=== PATIENT | female | born 1960 | race Caucasian/White ===

== ENCOUNTER 2016-10-10 15:32 | Emergency (ER) | payer OTHER ==
[~2016-10-10] VITALS: Ht 154.9 cm; Wt 47.2 kg
[2016-10-10] MEDS ORDERED: NOVAPLUS V0.09 MG/Ac INH (15:53)
[2016-10-10 16:53] LABS: BASO % 0.4 % (0.0-1.0); EOS # 0.2 10*3/uL (0.0-0.4); EOS % 2.1 % (1.0-4.0); HEMATOCRIT 44.4 % (37.0-47.0); HEMOGLOBIN 14.6 g/dl (12.0-16.0); LYMPH # 2.5 10*3/uL (1.3-4.4); LYMPH % 35.8 % (27.0-41.0); MEAN CELL VOLUME 98.4 fl (81.0-99.0); MEAN CORPUSCULAR HGB 32.4 pg (27.0-31.0); MEAN CORPUSCULAR HGB CONC 32.9 g/dl (33.0-37.0); MEAN PLATELET VOLUME 10.1 fl (9.6-12.3); MONO # 0.7 10*3/uL (0.1-1.0); MONO % 10.6 % (3.0-9.0); NEUT # 3.6 10*3/uL (2.3-7.9); PLATELET COUNT AUTOMATED 209 10*3/uL (130-400); RED BLOOD COUNT 4.51 10*6/uL (4.10-5.10); RED CELL DISTRI WIDTH 14.2 % (0-14.5)
[2016-10-10 17:02] LABS: INTERNATIONAL NORM RATIO 0.9 (2.0-3.5)
[2016-10-10 17:09] LABS: ALBUMIN 3.6 gm/dl (3.1-4.5); ALKALINE PHOSPHATASE 116 U/L (45-117); BILIRUBIN, TOTAL 0.3 mg/dl (0.2-1.0); BUN 5 mg/dl (7-24); C-REACTIVE PROTEIN 0.84 MG/DL (0-0.3); CARBON DIOXIDE 29 mmol/L (21-32); CHLORIDE 104 mmol/L (98-107); CPK 41 U/L (26-192); EST GLOM FILT AFRICAN AMERICAN > 60 ml/min; GLUCOSE 77 mg/dL (65-99); POTASSIUM 4.6 mmol/L (3.5-5.1); SGOT/AST 22 IU/L (3-35); SGPT/ALT 15 U/L (12-78); SODIUM 142 mmol/L (136-145); TOTAL PROTEIN 7.3 gm/dL (6.4-8.2)
[2016-10-10 17:10] LABS: TROPONIN I < 0.015 ng/ml (<0.045)
[2016-10-10] MEDS ORDERED: PREDNISONE10 MG PO (17:42)
[2016-10-10] MEDS ORDERED: LEVAQUIN750 M1 PO (17:42)
== END 2016-10-10 18:06 | disposition home or self-care (01) ==
LOC: ED 15:32
PROVIDERS: Emergency Medicine
DX: J44.1 Chronic obstructive pulmonary disease with (acute) exacerbation (principal); F17.200 Nicotine dependence, unspecified, uncomplicated; Z88.0 Allergy status to penicillin; Z88.6 Allergy status to analgesic agent; Z91.040 Latex allergy status

== ENCOUNTER 2016-10-11 22:25 | Inpatient (IN) | payer OTHER ==
[~2016-10-11] VITALS: Ht 152.4 cm; Wt 60.5 kg
[~2016-10-11 22:25] MED LIST: LEVAQUIN750 M1 PO; NOVAPLUS V0.09 MG/Ac INH; PREDNISONE10 MG PO
[2016-10-11 22:26] VITALS: BP 159/98
[2016-10-11 22:45] LABS: HEMATOCRIT 40.7 % (37.0-47.0); HEMOGLOBIN 13.6 g/dl (12.0-16.0); MEAN CELL VOLUME 98.5 fl (81.0-99.0); MEAN CORPUSCULAR HGB 32.9 pg (27.0-31.0); MEAN CORPUSCULAR HGB CONC 33.4 g/dl (33.0-37.0); PLATELET COUNT AUTOMATED 210 10*3/uL (130-400); RED BLOOD COUNT 4.13 10*6/uL (4.10-5.10); RED CELL DISTRI WIDTH 14.4 % (0-14.5); WHITE BLOOD COUNT 15.6 10*3/uL (4.8-10.8)
[2016-10-11 22:55] LABS: PROTHROMBIN TIME 10.5 SECONDS (9.0-12.4)
[2016-10-11 23:00] VITALS: BP 105/69
[2016-10-11 23:06] LABS: ALBUMIN 3.4 gm/dl (3.1-4.5); ALKALINE PHOSPHATASE 99 U/L (45-117); BILIRUBIN, TOTAL 0.3 mg/dl (0.2-1.0); BUN 7 mg/dl (7-24); CARBON DIOXIDE 22 mmol/L (21-32); CHLORIDE 101 mmol/L (98-107); EST GLOM FILT AFRICAN AMERICAN > 60 ml/min; GLUCOSE 135 mg/dL (65-99); MAGNESIUM 1.7 mg/dL (1.5-2.1); POTASSIUM 3.9 mmol/L (3.5-5.1); SGOT/AST 21 IU/L (3-35); SGPT/ALT 15 U/L (12-78); SODIUM 135 mmol/L (136-145); TOTAL PROTEIN 7.1 gm/dL (6.4-8.2)
[2016-10-11 23:07] LABS: TROPONIN I < 0.015 ng/ml (<0.045)
[2016-10-11 23:10] LABS: BASOPHIL # 0.3 10*3/uL (0-0.1); BASOPHILS 2 % (0-1); LYMPHOCYTE # 0.8 10*3/uL (1.3-4.4); NEUTROPHIL # 14.5 10*3/uL (2.3-7.9); NEUTROPHILS 93 % (47-73); PLATELET SUFFICIENCY NORMAL (NORMAL); TOTAL CELLS COUNTED 100 #CELLS
[2016-10-11 23:27] VITALS: BP 105/67
[2016-10-11 23:33] LABS: ABG BASE EXCESS -3.8 mmol/L (-2.0-2.0); ABG CO2 CONTENT 22.1 mmol/L (23-27); ABG HCO3 20.9 mmol/l (22-26); ABG TEMPERATURE 98.8 F (98.0-99.0); ARTERIAL BLOOD GAS PH 7.35 (7.35-7.45); ARTERIAL BLOOD GAS PO2 90.9 mmHg (80-90)
[2016-10-11 23:55] VITALS: BP 97/62
[2016-10-12 00:15] VITALS: BP 115/71
[2016-10-12 01:00] LABS: LA>2 REFLEX 2 HR DRAW NOW
[2016-10-12] MEDS ORDERED: PRILOSEC20 M1 PO (01:01)
[2016-10-12 01:05] LABS: LA>2 RFLX FOLLOW UP AT 2 HRS 2.6 mmol/L (0.4-2.0)
[2016-10-12 03:02] LABS: LA>2 REFLEX 4 HR DRAW NOW
[2016-10-12 04:00] VITALS: BP 112/71
[2016-10-12 04:44] LABS: HEMATOCRIT 38.8 % (37.0-47.0); HEMOGLOBIN 12.6 g/dl (12.0-16.0); MEAN CELL VOLUME 99.7 fl (81.0-99.0); MEAN CORPUSCULAR HGB 32.4 pg (27.0-31.0); MEAN CORPUSCULAR HGB CONC 32.5 g/dl (33.0-37.0); PLATELET COUNT AUTOMATED 190 10*3/uL (130-400); RED BLOOD COUNT 3.89 10*6/uL (4.10-5.10); RED CELL DISTRI WIDTH 14.4 % (0-14.5)
[2016-10-12 04:54] LABS: PROTHROMBIN TIME 10.7 SECONDS (9.0-12.4)
[2016-10-12 05:00] LABS: ALBUMIN 3.1 gm/dl (3.1-4.5); ALKALINE PHOSPHATASE 82 U/L (45-117); BILIRUBIN, TOTAL 0.2 mg/dl (0.2-1.0); BUN 4 mg/dl (7-24); CARBON DIOXIDE 24 mmol/L (21-32); CHLORIDE 109 mmol/L (98-107); CHOLESTEROL 160 mg/dL (<200); EST GLOM FILT AFRICAN AMERICAN > 60 ml/min; GLUCOSE 167 mg/dL (65-99); MAGNESIUM 1.7 mg/dL (1.5-2.1); PHOSPHOROUS 3.4 mg/dL (2.5-4.9); POTASSIUM 4.3 mmol/L (3.5-5.1); SGOT/AST 18 IU/L (3-35); SGPT/ALT 11 U/L (12-78); SODIUM 145 mmol/L (136-145); TOTAL PROTEIN 6.2 gm/dL (6.4-8.2); TRIGLYCERIDES 57 mg/dl (<150); VLDL CHOLESTEROL 11 mg/dL (6-40)
[2016-10-12 05:01] LABS: CKMB 10.5 ng/ml (0.5-3.6); FREE T4 0.91 ng/dl (0.76-1.46)
[2016-10-12 05:05] LABS: HEMOGLOBIN A1c 5.8 % (4.8-5.6)
[2016-10-12 05:06] LABS: HDL CHOLESTEROL 81 mg/dl (40-60); LDL CHOLESTEROL 68 mg/dL (9-159); THYROID STIM HORMONE (HS) 0.531 uIU/ml (0.358-4.75)
[2016-10-12 05:12] LABS: LYMPHOCYTE # 0.6 10*3/uL (1.3-4.4); NEUTROPHIL # 11.4 10*3/uL (2.3-7.9); NEUTROPHILS 95 % (47-73); PLATELET SUFFICIENCY NORMAL (NORMAL); TOTAL CELLS COUNTED 100 #CELLS
[2016-10-12 07:54] LABS: CPK 64 U/L (26-192); TROPONIN I < 0.015 ng/ml (<0.045)
[2016-10-12 07:55] LABS: CKMB 9.3 ng/ml (0.5-3.6)
[2016-10-12 08:00] VITALS: BP 124/70
[2016-10-12 08:25] LABS: FOLIC ACID 5.93 ng/mL (>5.38); VITAMIN D, 25-HYDROXY 9.2 ng/mL (30-100)
[2016-10-12 10:48] LABS: CPK 55 U/L (26-192)
[2016-10-12 10:52] LABS: CKMB 8.2 ng/ml (0.5-3.6); TROPONIN I < 0.015 ng/ml (<0.045)
[2016-10-12 12:00] VITALS: BP 110/66
[2016-10-12 17:27] VITALS: BP 108/72
[2016-10-12 20:00] VITALS: BP 131/70
[2016-10-13] VITALS: BP 115/67
[2016-10-13 06:28] LABS: HEMATOCRIT 38.3 % (37.0-47.0); HEMOGLOBIN 12.4 g/dl (12.0-16.0); MEAN CELL VOLUME 100.5 fl (81.0-99.0); MEAN CORPUSCULAR HGB 32.5 pg (27.0-31.0); MEAN CORPUSCULAR HGB CONC 32.4 g/dl (33.0-37.0); MEAN PLATELET VOLUME 10.5 fl (9.6-12.3); PLATELET COUNT AUTOMATED 213 10*3/uL (130-400); RED BLOOD COUNT 3.81 10*6/uL (4.10-5.10); RED CELL DISTRI WIDTH 14.9 % (0-14.5); WHITE BLOOD COUNT 16.2 10*3/uL (4.8-10.8)
[2016-10-13 06:49] LABS: LYMPHOCYTE # 0.3 10*3/uL (1.3-4.4); NEUTROPHIL # 15.9 10*3/uL (2.3-7.9); NEUTROPHILS 98 % (47-73); PLATELET SUFFICIENCY NORMAL (NORMAL); TOTAL CELLS COUNTED 100 #CELLS
[2016-10-13 06:53] LABS: BUN 10 mg/dl (7-24); CARBON DIOXIDE 29 mmol/L (21-32); CHLORIDE 109 mmol/L (98-107); EST GLOM FILT AFRICAN AMERICAN > 60 ml/min; GLUCOSE 144 mg/dL (65-99); POTASSIUM 3.9 mmol/L (3.5-5.1); SODIUM 145 mmol/L (136-145)
[2016-10-13 08:00] VITALS: BP 128/78
[2016-10-13] MEDS ORDERED: VITAMIN D50000 I3 PO (10:38)
== END 2016-10-13 11:29 | disposition home or self-care (01) | DRG 871 ==
LOC: ED 22:25 → ICCU 23:55 → EDHOLD 23:55 → ICCU 10-12 00:04 → 4E 10-12 17:20
PROVIDERS: Emergency Medicine; Internal Medicine; Registered Nurse
DX: A41.9 Sepsis, unspecified organism (principal); J18.9 Pneumonia, unspecified organism; E87.2 Acidosis; J44.0 Chronic obstructive pulmonary disease with (acute) lower respiratory infection; J44.1 Chronic obstructive pulmonary disease with (acute) exacerbation; E44.1 Mild protein-calorie malnutrition; F31.9 Bipolar disorder, unspecified; K21.9 Gastro-esophageal reflux disease without esophagitis; G40.909 Epilepsy, unspecified, not intractable, without status epilepticus; E55.9 Vitamin D deficiency, unspecified; F17.200 Nicotine dependence, unspecified, uncomplicated; R73.03 Prediabetes; Z68.34 Body mass index [BMI] 34.0-34.9, adult; Z71.6 Tobacco abuse counseling; Z83.3 Family history of diabetes mellitus; Z82.49 Family history of ischemic heart disease and other diseases of the circulatory system; Z88.5 Allergy status to narcotic agent; Z85.3 Personal history of malignant neoplasm of breast; Z88.0 Allergy status to penicillin

== ENCOUNTER 2016-10-16 23:57 | Inpatient (IN) | payer OTHER ==
[~2016-10-16] VITALS: Ht 152.4 cm; Wt 61.7 kg
[~2016-10-16 23:57] MED LIST changes: +PRILOSEC20 M1 PO; +VITAMIN D50000 I3 PO
[2016-10-17 00:17] VITALS: BP 134/101
[2016-10-17 00:23] LABS: BASO % 0.1 % (0.0-1.0); EOS % 0.1 % (1.0-4.0); HEMATOCRIT 42.1 % (37.0-47.0); HEMOGLOBIN 14.1 g/dl (12.0-16.0); IG # 0.1 10*3/uL (0.0-0.1); LYMPH # 2.7 10*3/uL (1.3-4.4); LYMPH % 26.2 % (27.0-41.0); MEAN CELL VOLUME 98.8 fl (81.0-99.0); MEAN CORPUSCULAR HGB 33.1 pg (27.0-31.0); MEAN CORPUSCULAR HGB CONC 33.5 g/dl (33.0-37.0); MONO # 0.7 10*3/uL (0.1-1.0); MONO % 6.9 % (3.0-9.0); NEUT # 6.7 10*3/uL (2.3-7.9); NEUT % 65.7 % (47.0-73.0); NUCLEATED RED BLOOD CELL 0.2 % (0.0-0.0); PLATELET COUNT AUTOMATED 227 10*3/uL (130-400); RED BLOOD COUNT 4.26 10*6/uL (4.10-5.10); RED CELL DISTRI WIDTH 15.1 % (0-14.5); WHITE BLOOD COUNT 10.2 10*3/uL (4.8-10.8)
[2016-10-17 00:32] LABS: PROTHROMBIN TIME 10.3 SECONDS (9.0-12.4)
[2016-10-17 00:43] LABS: ALBUMIN 3.3 gm/dl (3.1-4.5); ALKALINE PHOSPHATASE 66 U/L (45-117); BILIRUBIN, TOTAL 0.2 mg/dl (0.2-1.0); BUN 9 mg/dl (7-24); CARBON DIOXIDE 28 mmol/L (21-32); CHLORIDE 107 mmol/L (98-107); EST GLOM FILT AFRICAN AMERICAN > 60 ml/min; GLUCOSE 114 mg/dL (65-99); POTASSIUM 3.7 mmol/L (3.5-5.1); SGOT/AST 21 IU/L (3-35); SGPT/ALT 22 U/L (12-78); SODIUM 143 mmol/L (136-145); TOTAL PROTEIN 6.4 gm/dL (6.4-8.2)
[2016-10-17 00:46] LABS: TROPONIN I < 0.015 ng/ml (<0.045)
[2016-10-17 01:40] VITALS: BP 135/81
[2016-10-17 04:00] VITALS: BP 108/58
[2016-10-17 06:45] LABS: BUN 8 mg/dl (7-24); CARBON DIOXIDE 33 mmol/L (21-32); CHLORIDE 106 mmol/L (98-107); EST GLOM FILT AFRICAN AMERICAN > 60 ml/min; GLUCOSE 81 mg/dL (65-99); POTASSIUM 4.2 mmol/L (3.5-5.1); SODIUM 143 mmol/L (136-145)
[2016-10-17 07:07] LABS: EOS # 0.1 10*3/uL (0.0-0.4); EOS % 0.8 % (1.0-4.0); HEMATOCRIT 39.4 % (37.0-47.0); HEMOGLOBIN 12.8 g/dl (12.0-16.0); IG # 0.1 10*3/uL (0.0-0.1); LYMPH # 2.3 10*3/uL (1.3-4.4); LYMPH % 28.5 % (27.0-41.0); MEAN CELL VOLUME 100.3 fl (81.0-99.0); MEAN CORPUSCULAR HGB 32.6 pg (27.0-31.0); MEAN CORPUSCULAR HGB CONC 32.5 g/dl (33.0-37.0); MEAN PLATELET VOLUME 10.3 fl (9.6-12.3); MONO # 0.6 10*3/uL (0.1-1.0); MONO % 8.1 % (3.0-9.0); NEUT # 4.9 10*3/uL (2.3-7.9); NEUT % 61.6 % (47.0-73.0); PLATELET COUNT AUTOMATED 202 10*3/uL (130-400); RED BLOOD COUNT 3.93 10*6/uL (4.10-5.10); RED CELL DISTRI WIDTH 15.3 % (0-14.5); WHITE BLOOD COUNT 7.9 10*3/uL (4.8-10.8)
[2016-10-17 08:00] VITALS: BP 112/66
[2016-10-17 12:00] VITALS: BP 102/63
== END 2016-10-17 13:04 | disposition left against medical advice (07) | DRG 377 ==
LOC: ED 23:57 → 4E 10-17 01:00 → EDHOLD 10-17 01:00 → 4E 10-17 01:21
PROVIDERS: Emergency Medicine; Internal Medicine
DX: K92.2 Gastrointestinal hemorrhage, unspecified (principal); J96.20 Acute and chronic respiratory failure, unspecified whether with hypoxia or hypercapnia; J18.9 Pneumonia, unspecified organism; E44.0 Moderate protein-calorie malnutrition; J44.0 Chronic obstructive pulmonary disease with (acute) lower respiratory infection; J44.1 Chronic obstructive pulmonary disease with (acute) exacerbation; F17.210 Nicotine dependence, cigarettes, uncomplicated; F31.9 Bipolar disorder, unspecified; K21.9 Gastro-esophageal reflux disease without esophagitis; G40.909 Epilepsy, unspecified, not intractable, without status epilepticus; Z68.26 Body mass index [BMI] 26.0-26.9, adult; Z88.0 Allergy status to penicillin; Z88.6 Allergy status to analgesic agent; Z79.899 Other long term (current) drug therapy; Z83.3 Family history of diabetes mellitus; Z80.3 Family history of malignant neoplasm of breast; Z82.49 Family history of ischemic heart disease and other diseases of the circulatory system

== ENCOUNTER → 2016-11-15 | Outpatient (CLI) | payer OTHER | END | disposition home or self-care (01) | LOC: US 16:18 | DX: I87.8 Other specified disorders of veins (principal); I73.9 Peripheral vascular disease, unspecified; E87.8 Other disorders of electrolyte and fluid balance, not elsewhere classified ==

== ENCOUNTER → 2016-12-26 | Outpatient (CLI) | payer OTHER | END | disposition home or self-care (01) | LOC: LAB 09:43 | DX: J44.9 Chronic obstructive pulmonary disease, unspecified (principal) ==

== ENCOUNTER 2017-02-07 13:46 | Emergency (ER) | payer OTHER ==
[~2017-02-07] VITALS: Ht 167.6 cm; Wt 70.3 kg
[2017-02-07] MEDS ORDERED: PREDNISONE10 MG PO (14:35)
== END 2017-02-07 14:37 | disposition left against medical advice (07) ==
LOC: ED 13:46
DX: R06.02 Shortness of breath (principal); R05 Cough; J44.9 Chronic obstructive pulmonary disease, unspecified; K21.9 Gastro-esophageal reflux disease without esophagitis; E11.9 Type 2 diabetes mellitus without complications; G40.909 Epilepsy, unspecified, not intractable, without status epilepticus; Z88.0 Allergy status to penicillin; Z88.6 Allergy status to analgesic agent

== ENCOUNTER 2017-02-10 23:47 | Inpatient (IN) | payer OTHER ==
[~2017-02-10] VITALS: Ht 157.5 cm; Wt 56.0 kg
[2017-02-10 23:48] VITALS: BP 105/71
[2017-02-11] VITALS (9 sets, daily range): BP systolic 103–143; BP diastolic 50–93
[2017-02-11 00:29] LABS: BASO # 0.1 10*3/uL (0.0-0.1); BASO % 0.5 % (0.0-1.0); EOS # 0.1 10*3/uL (0.0-0.4); EOS % 0.8 % (1.0-4.0); HEMATOCRIT 45.5 % (37.0-47.0); HEMOGLOBIN 15.3 g/dl (12.0-16.0); LYMPH # 3.1 10*3/uL (1.3-4.4); LYMPH % 31.2 % (27.0-41.0); MEAN CELL VOLUME 92.9 fl (81.0-99.0); MEAN CORPUSCULAR HGB 31.2 pg (27.0-31.0); MEAN CORPUSCULAR HGB CONC 33.6 g/dl (33.0-37.0); MONO # 0.7 10*3/uL (0.1-1.0); MONO % 7.2 % (3.0-9.0); NEUT % 60.1 % (47.0-73.0); PLATELET COUNT AUTOMATED 224 10*3/uL (130-400); RED CELL DISTRI WIDTH 14.9 % (0-14.5)
[2017-02-11 00:47] LABS: ALBUMIN 2.9 gm/dl (3.1-4.5); ALKALINE PHOSPHATASE 97 U/L (45-117); BUN 2 mg/dl (7-24); CHLORIDE 103 mmol/L (98-107); CREATININE 0.46 mg/dL (0.55-1.02); LIPASE 147 U/L (73-393); POTASSIUM 3.6 mmol/L (3.5-5.1); SGOT/AST 21 IU/L (3-35); SGPT/ALT 16 U/L (12-78); SODIUM 137 mmol/L (136-145); TOTAL PROTEIN 6.8 gm/dL (6.4-8.2)
[2017-02-11 00:49] LABS: TROPONIN I < 0.015 ng/ml (<0.045)
--- NOTE | 2017-02-11 01:43 | NUR ---
REPORT CALLED AND GIVEN. PT STABLE AND READY FOR TRANSPORT TO ICCU.
--- NOTE | 2017-02-11 02:13 | NUR ---
ABG'S UNABLE TO OBTAIN AFTER MULTIPLE ATTEMPTS.
--- NOTE | 2017-02-11 02:30 | NUR ---
A 56, admitted to ICCU, under the services of MCARINA Navarro DO with a diagnosis of COPD EXACERBATION. Chief complaint is SHORTNESS OB FREATH. Patient arrived via stretcher from ER. Monitor applied. Initial assessment completed. Vital signs taken and recorded. MACRINA NAVARRO DO notified of admission to the unit. Orders received. See assessment for past medical history, medications and allergies. Patient and/or family oriented to unit. [facility] ICCU visitation policy reviewed. Clothing/patient valuable form completed. NINOSKA BENNETT
[2017-02-11] MEDS ORDERED: PROAIR HFA8.5 GM INH (02:40)
[2017-02-11] MEDS ORDERED: PULMICORT FLE180 MCG INH (02:44)
[2017-02-11] MEDS ORDERED: INHALER (02:46)
[2017-02-11 03:03] LABS: ABG BASE EXCESS -0.6 mmol/L (-2.0-2.0); ABG HCO3 25.1 mmol/l (22-26); ABG O2 SATURATION 94.6 % (95-97); ARTERIAL BLOOD GAS PCO2 46.8 mmHg (35-45); ARTERIAL BLOOD GAS PH 7.348 (7.35-7.45)
--- NOTE | 2017-02-11 03:14 | NUR ---
DR ADKINS NOTIFIED OF ABG RESULTS, NO NEW ORDERS.
--- NOTE | 2017-02-11 04:00 | NUR ---
Patient resting quietly with no c/o discomfort. Respirations easy and regular. Vital signs stable. No overt distress. DALILA JACKSON
[2017-02-11 06:27] LABS: HEMATOCRIT 43.6 % (37.0-47.0); HEMOGLOBIN 14.5 g/dl (12.0-16.0); MEAN CELL VOLUME 93.6 fl (81.0-99.0); MEAN CORPUSCULAR HGB 31.1 pg (27.0-31.0); MEAN CORPUSCULAR HGB CONC 33.3 g/dl (33.0-37.0); MEAN PLATELET VOLUME 10.2 fl (9.6-12.3); PLATELET COUNT AUTOMATED 197 10*3/uL (130-400); RED BLOOD COUNT 4.66 10*6/uL (4.10-5.10); RED CELL DISTRI WIDTH 14.8 % (0-14.5); WHITE BLOOD COUNT 6.1 10*3/uL (4.8-10.8)
[2017-02-11 06:51] LABS: PLATELET SUFFICIENCY NORMAL (NORMAL); TOTAL CELLS COUNTED 100 #CELLS
[2017-02-11 07:02] LABS: ALBUMIN 2.7 gm/dl (3.1-4.5); ALKALINE PHOSPHATASE 94 U/L (45-117); BUN 2 mg/dl (7-24); CHLORIDE 102 mmol/L (98-107); CREATININE 0.47 mg/dL (0.55-1.02); MAGNESIUM 1.7 mg/dL (1.5-2.1); PHOSPHOROUS 3.4 mg/dL (2.5-4.9); POTASSIUM 3.8 mmol/L (3.5-5.1); SGOT/AST 18 IU/L (3-35); SGPT/ALT 17 U/L (12-78); SODIUM 139 mmol/L (136-145); TOTAL PROTEIN 6.7 gm/dL (6.4-8.2)
[2017-02-11 07:03] LABS: ACT PARTIAL THROMBO TIME 26.7 SECONDS (20.8-31.5); INTERNATIONAL NORM RATIO 1.1 (2.0-3.5)
--- NOTE | 2017-02-11 14:00 | NUR ---
PT CARE TO CONTINUE ON THE 5TH FLOOR.
--- NOTE | 2017-02-11 14:30 | NUR ---
PATIENT WAS ASSESSED HEAD TO TOE. THE PATIENT HAS NO DISTRESS AT THIS TIME. DENIES SOB, CP, OR STOMACH PROBLEMS. THE PATIENT IS ON 3LNC, SATS AT 98%. THE PATIENT IS BREATHING NONLABORED, LUNGS ARE DIM/WHEEZE, PATIENS STATES MOIST COUGH, AND HEART SOUNDS ARE NORMAL. NO WOUNDS NOTED ON PATIENT. SKIN INTACT. NO CONCERN FROM THE PATIENT AT THIS TIME.
--- NOTE | 2017-02-11 20:00 | NUR ---
PT RESTING IN BED, NO DISTRESS NOTED. RESPIRATIONS EASY AND REGULAR, ALCAZAR, ON 3L NC. LUNGS DIMINISHED, EXP WHEEZE. HRR, NO EDEMA NOTED. PT DENIES ANY COMPLAINTS. IVF INFUSING PER ORDER. CALL LIGHT WITHIN REACH.
[2017-02-12] VITALS: BP 122/66
[2017-02-12 06:37] LABS: BASO % 0.1 % (0.0-1.0); HEMATOCRIT 42.4 % (37.0-47.0); HEMOGLOBIN 13.9 g/dl (12.0-16.0); LYMPH # 1.1 10*3/uL (1.3-4.4); LYMPH % 8.5 % (27.0-41.0); MEAN CELL VOLUME 95.3 fl (81.0-99.0); MEAN CORPUSCULAR HGB 31.2 pg (27.0-31.0); MEAN CORPUSCULAR HGB CONC 32.8 g/dl (33.0-37.0); MEAN PLATELET VOLUME 10.5 fl (9.6-12.3); MONO # 0.7 10*3/uL (0.1-1.0); MONO % 5.3 % (3.0-9.0); NEUT # 11.3 10*3/uL (2.3-7.9); NEUT % 85.9 % (47.0-73.0); PLATELET COUNT AUTOMATED 213 10*3/uL (130-400); RED BLOOD COUNT 4.45 10*6/uL (4.10-5.10); RED CELL DISTRI WIDTH 14.9 % (0-14.5); WHITE BLOOD COUNT 13.1 10*3/uL (4.8-10.8)
[2017-02-12 07:03] LABS: BUN 5 mg/dl (7-24); CHLORIDE 102 mmol/L (98-107); CREATININE 0.34 mg/dL (0.55-1.02); POTASSIUM 3.7 mmol/L (3.5-5.1); SODIUM 139 mmol/L (136-145)
[2017-02-12 08:00] VITALS: BP 122/60
--- NOTE | 2017-02-12 09:00 | NUR ---
Meat Cutter Apprentice in to talk to patient. Patient states lives at home with sister. There are few steps in the home. Physician: benitez payan [facility] Home health services: none Patient's level of ADLs: INDEPENDENT Patient has working utilities: all working DME: home oxygen she wears a hs, nebulizer Follow-up physician's appointment after d/c: will be made by hospitalist nurse director upon discharge Does patient want to access PORTAL?: no Discharge plan discussed with patient, patient states she lives at home with her sister, she is independent in adls and ambulation, sister drives, patient states she will be going home and denies any home needs. CRISTO DE LUNA
--- NOTE | 2017-02-12 11:30 | NUR ---
PT LEFT HOSPITAL AGAINST MEDICAL ADVICE. HEP LOCK REMOVED, ASSOCIATE DIRECTOR FINANCE AND DOCTORS AWARE. HEART MONITOR REMOVED.
== END 2017-02-12 12:04 | disposition left against medical advice (07) | DRG 871 ==
LOC: ED 23:47 → EDHOLD 02-11 01:21 → ICCU 02-11 01:21 → 5E 02-11 13:41
PROVIDERS: Emergency Medicine Emergency Medical Services; Family Medicine; ADMIT Internal Medicine
DX: A41.9 Sepsis, unspecified organism (principal); E43 Unspecified severe protein-calorie malnutrition; J96.21 Acute and chronic respiratory failure with hypoxia; J18.9 Pneumonia, unspecified organism; J96.22 Acute and chronic respiratory failure with hypercapnia; J44.1 Chronic obstructive pulmonary disease with (acute) exacerbation; J44.0 Chronic obstructive pulmonary disease with (acute) lower respiratory infection; Z53.21 Procedure and treatment not carried out due to patient leaving prior to being seen by health care provider; R65.20 Severe sepsis without septic shock; G40.909 Epilepsy, unspecified, not intractable, without status epilepticus; F31.9 Bipolar disorder, unspecified; F17.210 Nicotine dependence, cigarettes, uncomplicated; K21.9 Gastro-esophageal reflux disease without esophagitis; E55.9 Vitamin D deficiency, unspecified; R73.03 Prediabetes; Z88.0 Allergy status to penicillin; Z71.6 Tobacco abuse counseling; Z88.6 Allergy status to analgesic agent; Z88.8 Allergy status to other drugs, medicaments and biological substances; Z79.899 Other long term (current) drug therapy; Z83.3 Family history of diabetes mellitus; Z82.49 Family history of ischemic heart disease and other diseases of the circulatory system; Z80.3 Family history of malignant neoplasm of breast; Z98.891 History of uterine scar from previous surgery; Z68.22 Body mass index [BMI] 22.0-22.9, adult

== ENCOUNTER 2017-04-01 14:55 | Inpatient (IN) | payer OTHER ==
[~2017-04-01] VITALS: Ht 157.4 cm; Wt 58.1 kg
--- NOTE | ~2017-04-01 | CON ---
[place], [place] REPORT OF CONSULTATION NAME: DONNA MERAZ UNIT #: [id number] ROOM: [facility] DOCTOR: ROLO CASTANEDA DO BIRTHDATE: [birth year] DOS: 04/04/2017 This consult note is to be attached to Dr. Campbell's consult note which he will dictate separately. REASON FOR CONSULT: Pneumonia, not improving. CHIEF COMPLAINT: Shortness of breath. HISTORY OF PRESENT ILLNESS: The patient is a 56-year-old female who has been complaining of shortness of breath for several days. She was admitted to the hospital on the , approximately 3 days ago and after being found to have what was suspected to be either pneumonia or side effects from alcohol withdrawal. She was in the hospital for 2 days before getting increasingly confused yesterday and becoming more tachycardic and tachypneic and being moved to the ICU. She is less confused today. She denies any chest pain, nausea, vomiting, diarrhea, abdominal pain, but she does admit to a productive cough that is productive of greenish sputum. She has been on azithromycin and in addition to that Levaquin and vancomycin were added. She is currently afebrile and not complaining of any other symptoms. She was ____ kept in ICU yesterday due to altered mental status ____ compliance with treatment plan. PAST MEDICAL HISTORY: Significant for bipolar disorder, COPD, CVA, GERD, GI bleed, seizure disorder, tobacco abuse, vitamin D deficiency and alcohol abuse. PAST SURGICAL HISTORY: Positive for and dental surgery. SOCIAL HISTORY: Recently reportedly quit smoking cigarettes after 50 years approximately of smoking. No drug use, but it is unclear to what extent a history of alcohol abuse. FAMILY HISTORY: Father is , of heart disease at age older than 60. Mother at age older than 60 from breast cancer. ALLERGIES: PENICILLIN, HYDROCODONE and IBUPROFEN. HOME MEDICATIONS: Albuterol, Symbicort and Prilosec. REVIEW OF SYSTEMS: GENERAL: Reports chills and fevers, but denies any weight loss. HEENT: Denies any hearing loss, vision blurring, ear pain, nose pain, throat pain, dysphagia. CARDIOVASCULAR: Denies chest pain. Reports occasional chest tightness. RESPIRATORY: Reports shortness of breath and a productive cough as well as wheezing. She denies any hemoptysis. ABDOMINAL: Denies any abdominal pain, nausea, vomiting, diarrhea. GENITOURINARY: Denies dysuria, hematuria. NEUROLOGIC: Denies lightheadedness, dizziness, confusion. PSYCHIATRIC: Denies depression, anxiety, substance abuse. ENDOCRINE: Denies any cold or heat intolerance. [place], [place] REPORT OF CONSULTATION NAME: DONNA MERAZ UNIT #: [id number] ROOM: [facility] DOCTOR: ROLO CASTANEDA DO BIRTHDATE: [birth year] SKIN: Denies any new rashes or lesions. PHYSICAL EXAMINATION: VITAL SIGNS: Most recent set shows temperature of 97.2, pulse of 115, respiratory rate 25, bedside pulse oximetry 97% on 2 liters nasal cannula. GENERAL: The patient is awake, alert and in no acute distress. HEAD: Normocephalic, atraumatic. EYES: PERRL. No drainage. ENT: No lesions. No masses. No drainage. NECK: Without lesions or masses. Trachea is midline. HEART: Tachycardia, S1, S2 heard. No lower extremity edema. LUNGS: Wheezes bilaterally with diminished breath sounds and rhonchi can be heard as well. ABDOMEN: Soft, nontender, nondistended. EXTREMITIES: No clubbing, erythema or edema. NEUROLOGIC: Grossly intact without any acute changes or focal deficits. PSYCHOLOGICAL: Currently, the patient seems to be alert and oriented; however, is seemingly confused ____ have improved. LABORATORY FINDINGS: WBC 13.3, RBC 3.83, HGB 12.2, HCT 37.9, MCV 99.0, MCH 31.9, MCHC 32.2, RDW 15.8, platelet count 306. Chemistries: Sodium 142, potassium 3.4, chloride 109, carbon dioxide 26, BUN 4, creatinine 0.39, estimated GFR is more than 60, glucose 199, calcium 7.9, phosphorus 2.4, magnesium 1.9, total bilirubin 0.2, AST 22, ALT 35, alkaline phosphatase 82, ammonia 40, total protein 5.6, albumin 2.0. TSH 0.26 and T4 is ____. IMAGING: Head CT showed some encephalomalacia in the left parietal lobe, compatible with chronic infarct. Chest x-ray showed left lower lobe infiltrate, fibrosis and COPD. CTA done yesterday showed no acute pulmonary embolism, did show bibasilar atelectasis, left greater than right, as well as mild patchy nodular ground glass opacity in the right lung. IMPRESSION: 1. Acute on chronic respiratory failure with pneumonia most likely as well as a possible superimposed inflammatory process, malignancy cannot be completely ruled out at this time. However, the appearance on CT scan is ____ infectious and/or inflammatory condition. 2. Altered mental status, cause can be due to reported alcohol withdrawal or possibly related to the elevated ammonia and/or hepatic issues. 3. Severe sepsis. 4. Hypokalemia. MANAGEMENT PLAN: Antibiotics have been modified. Azithromycin and vancomycin stopped. We will continue with Levaquin. Steroids have been decreased from 60 mg of Solu-Medrol t.i.d. to 40 mg t.i.d. We will continue with the breathing treatments and mental status seems to have improved. We will continue to follow and reevaluate. Cultures have been obtained and are pending. For any further details, please see Dr. Campbell's note. [place], [place] REPORT OF CONSULTATION NAME: DONNA MERAZ Archie UNIT #: [id number] ROOM: [facility] DOCTOR: ROLO CASTANEDA DO BIRTHDATE: [birth year] ROLO CASTANEDA DO SEBASTIAN CAMPBELL MD CM:CONSTR:REPORT OF CONSULTATION 1025 04/05/17 0449 interface
--- NOTE | ~2017-04-01 | CON ---
[place], [place] REPORT OF CONSULTATION [facility]: DONNA [id number] UNIT #: [id number] ROOM: [facility] DOCTOR: NEYMAR CIFUENTES ED.D (BABITA) BIRTHDATE: [birth year] DOS: 04/01/2017 HISTORY OF PRESENT ILLNESS: The patient is a 56-year-old female referred by the hospitalist for competency evaluation. At the present time, this patient is in the intensive care unit at [facility]. She states she is and has one daughter. She is on SSI. She does not have a family physician. Her medical history is pertinent for bipolar disorder, history of sepsis, alcohol withdrawal. Her home medications include albuterol, Symbicort, aspirin and Protonix. This patient admits to drinking a 30-pack of beer every day and smoking 1 pack of cigarettes per day. She uses no other drugs per her report. She states she quit drinking and smoking when she was admitted to the hospital. She was awake, alert and oriented to person and place. She had a great deal of difficulty with time and did not know the month. She was aware of the year, but did not know the month or the day or the date. Her short and [facility] memory appears to be impaired and she appears to be suffering from alcohol withdrawal delirium. She states she has followed in the past with Dr. Reddy in [place], [place], who treats her bipolar disorder. I asked her if she had been to rehabilitation and she denied that and states she does not want to go to rehabilitation. She also does not want any further outpatient treatment. At the present time, she is under a pink slip here at the hospital and in my opinion should remain under that pink slip because she is clearly delirious at this time. DIAGNOSES: 1. Bipolar 1 - mixed. 2. Alcohol withdrawal delirium. 3. Alcohol dependence. RECOMMENDATIONS: The patient should remain in the hospital under a pink slip due to the fact she is delirious and is clearly not competent to make informed healthcare decisions at this time. Thank you very much for this consult. NEYMAR CIFUENTES ED.D CM:CONSTR:REPORT OF CONSULTATION 1413 04/04/17 0553 interface
--- NOTE | ~2017-04-01 | PR ---
[place], [place] PROGRESS NOTE NAME: DONNA MERAZ UNIT #: [id number] [facility] DOCTOR: SEBASTIAN SKELTON MD BIRTHDATE: [birth year] DOS: 04/05/2017 SUBJECTIVE: She has been noted comfortable at this time. She has been noted some cough but with small amount of sputum expectoration. Denies any symptoms of chest pain or any abdominal pain. The patient denies any symptoms of hemoptysis. OBJECTIVE: VITAL SIGNS: Normal temperature, respiratory rate 29, heart rate 92, blood pressure 131/75 recorded this morning, pulse ox saturation noted on 2 liters nasal cannula 92% saturation. HEENT: No acute change. NECK: Supple. CARDIOVASCULAR: S1, S2 audible. LUNGS: Noted with scattered crackles in the lungs. There was no wheezing. ABDOMEN: Soft, nontender. Bowel sounds present. EXTREMITIES: Show no edema. LABORATORY DATA: CBC: WBC count 12.3. Remaining CBC grossly normal. BMP was noted as normal except glucose mildly elevated at 151. IMPRESSION: 1. The patient who has been currently noted with resolving acute exacerbation of chronic obstructive pulmonary disease, reduction in the wheezing was noted at the present time. 2. The patient with psychiatric problem as well with change in mental status, most likely related to the current, infection is resolving as well. PLAN OF TREATMENT: Reduce Solu-Medrol 40 mg b.i.d. Obtain a chest x-ray in the morning. CT scan of the chest to be monitored. Followup for this patient to document the resolution of current problems to rule out any malignancy in the thorax. Obtain a PA and lateral chest x-ray in the morning. Possible discharge home could be considered for the morning depends on further improvement in the respiratory status. [place], [place] PROGRESS NOTE NAME: DONNA MERAZ UNIT #: [id number] [facility] DOCTOR: SEBASTIAN SKELTON MD BIRTHDATE: [birth year] SEBASTIAN CAMPBELL MD CM:PNTRANS [phone] SEBASTIAN ASCENCIO MD 04/06/17 0005 interface
--- NOTE | ~2017-04-01 | CON ---
[place], [place] REPORT OF CONSULTATION NAME: DONNA MERAZ UNIT #: [id number] ROOM: [facility] DOCTOR: SEBASTIAN SKELTON MD BIRTHDATE: [birth year] DOS: 04/04/2017 ADDENDUM This is consultation is requested by the hospitalist services. This consultation was done for this patient for assessment of the nonresolving acute pneumonia. The patient was seen today with [id number] encounter. The history for this patient was personally taken from the patient and physical examination performed, all the available lab including the CT scan reviewed and the other radiology data personally reviewed from the PACS images. Assessment were personally completed for today's consultation and the management changes were also personally done for today's visit as well. Note done by the medical records coordinator was approved. HISTORY OF PRESENT ILLNESS: A 56-year-old white female with past known history of COPD, seen in my office once in December 2016. The patient presented to the hospital, she was having symptoms of gradual increased shortness of breath, which has been occurring for about 3 days. The patient has been prescribed the antibiotic at home for this patient as well as corticosteroids without any improvement in the respiratory symptoms. The symptoms of the patient has been noted with gradual worsening. The patient developed increased coughing, greenish sputum expectoration and also complained of pain in the left rib cage. The patient does report symptoms of shortness of breath with exertion. She was also noticed with symptoms of wheezing as well. She denies any symptoms of hemoptysis. The patient at this time was denying any pain in the chest as well. She noted significant confusional status yesterday. The patient signed against medical advice. She has been assessed and given pink slip for this patient to stay in the hospital because of mental incompetency. She has not been reported any symptoms of hemoptysis. REVIEW OF SYSTEMS: The patient already done by the medical records coordinator. PAST MEDICAL HISTORY: 1. Noted as history of chronic obstructive pulmonary disease. 2. Gastroesophageal reflux. 3. History of seizure disorder. 4. Chronic hypoxic respiratory failure, currently use of oxygen 3 liters nasal canula, probably prescribed by the primary care physician. 5. Vitamin D deficiency. 6. History of past CVA with right residual hemiparesis. PAST SURGICAL HISTORY: 1. . 2. Dental surgery. 3. History of and T and A. 4. History of surgery of the left shoulder and leg. SOCIAL HISTORY: The patient is and has one child. Denies history of alcohol use or illicit drug use. Tobacco use noted when 13 years old up to 2-1/2 packs of cigarettes per day. Stated that she has not smoked cigarettes [place], [place] REPORT OF CONSULTATION [id number] UNIT #: [id number] ROOM: [facility] DOCTOR: SEBASTIAN SKELTON MD BIRTHDATE: [birth year] for about a week and quit smoking cigarettes completely. FAMILY HISTORY: The patient's father at the age of 75 due to complications of congestive heart failure. Mother at age 6666 years old due complication related to abdominal aortic aneurysm. HOME MEDICATIONS: Reported use of Symbicort HFA inhaler, Prilosec and ProAir HFA inhaler. DRUG ALLERGIES: Reported allergies to PENICILLIN. PHYSICAL EXAMINATION: GENERAL: This is a 56-year-old white female who has been noted currently awake and alert at this time of the assessment. Height was noted as 5 feet 2 inches, weight 128 pounds, BMI 23.4. VITAL SIGNS: The patient shows a normal temperature, respiratory rate of noted up to 40 yesterday current noted 25 beats per minute. The heart rate of patient intubated 80-115, blood pressure 125/70-133/89. The pulse oxygen saturation for the patient recorded on 2 liters 95% saturation. HEENT: The patient noted without any acute abnormalities. NECK: Supple. Head was atraumatic. CARDIOVASCULAR SYSTEM: S1, S2 is audible. LUNGS: The patient was noted diffuse expiratory wheezing noted moderately in the lungs bilaterally. There were no crackles heard. ABDOMEN: Soft, nontender, bowel sounds present. CENTRAL NERVOUS SYSTEM: Cranial nerves 2-12 intact. No focal deficits. MUSCULOSKELETAL: No deformities. SKIN: No lesions or rashes. LABORATORY DATA: Lactic acid on 04/01/2017 on admission was 3.4. Followup lactic acid 1.4 the same day. The CMP on 04/01/2017, glucose 187, BUN and creatinine was normal, sodium 129, bilirubin 1.3, albumin of 2.3. CBC for this patient on 04/01/2017 admission, WBC count 17.7, hemoglobin and hematocrit normal, platelet count normal, differential 84% segmented neutrophils. Troponin 3 sets on 04/01/2017 were normal. CBC on 04/02/2017 noted normal WBC count at that time. CMP 04/02/2017 normal BUN and creatinine. Glucose 204, sodium was normal, potassium 3.4, albumin 1.9, total protein of 6.3. Vancomycin trough level yesterday at 5.6. CMP that was done yesterday, glucose 152 with potassium 3.2. The total bilirubin for this patient was noted as normal at this time. CBC of 04/03/2017, WBC count increased to 18.3. Hemoglobin and hematocrit normal, platelet count normal differential, the patient noted predominant neutrophils. Blood culture for ____ bacterial growth. The ammonia level yesterday noted 38. CT scan of the head without contrast of 04/03/2017 was noted as no acute intracranial pathology, encephalomalacia of the left parietal lobe noted with chronic infarct. The vancomycin trough level that was done yesterday was 11.1. The ammonia level of the patient was noted at 40 this morning. Culture of the sputum from the 04/02/2017, ____ sputum culture noted as normal malena. CBC this morning, WBC count 13.3, hemoglobin 12.2, hematocrit 37.9, platelet count of 306,000. The review of the radiology data for this patient was personally done. The chest x-ray of the patient that was done for [place], [place] REPORT OF CONSULTATION NAME: DONNA MERAZ UNIT #: [id number] ROOM: [facility] DOCTOR: SHANNAN ASCENCIO [facility] BIR[facility]: [birth year] this patient on 04/03/2017 was noted with left lower lobe infiltration and some blunting of the costophrenic angle, changes of COPD were visible. There was no gross pulmonary nodules or lung masses visible. CTA of the chest 04/03/2017 was noted. There was no evidence of pulmonary embolism in the major pulmonary artery or branches. The patient noted with area of pulmonary nodule for this patient, which has been present in the lungs bilaterally for this patient in the right lower lobe as well as the left upper lobe. Centrilobular nodules was also noted scattered in the subpleural distribution as well. Area of consolidation was noted in the right lower lobe for this patient with the pleural space with possibility of atypia to be quite dense with dysphagia, but the densities were noted possibility of either necrosis or because of the acute pneumonia. There was no lymphadenopathy visible. Changes of centrilobular emphysema were visible. IMPRESSION: The patient who has been currently admitted to the hospital with findings of acute pneumonia. The nodules which were noted in the lungs were noted new as compared to the January 2017 CT scan, personally compared. The current abnormality in the left lower lobe appeared to be new as well as pulmonary nodules which were identified in the lungs bilaterally and other subpleural distribution of the nodular infiltration was noted, all new. IMPRESSION: 1. The patient has been currently treated in the hospital for the possibility of acute pneumonia for this patient with other differential of eosinophilic pneumonia for the patient usually chronic in the current distribution of the infiltration. However, the patient does not show any signs of eosinophilia for the patient on the labs, which usually seen in the chronic eosinophilic pneumonia. 2. The patient with ongoing acute exacerbation of chronic obstructive pulmonary disease and acute change in mental status, most likely related to the current acute exacerbation of chronic obstructive pulmonary disease has been considered as well, which seem to be better this morning. 3. The patient with acute exacerbation of chronic obstructive pulmonary disease. 4. History of chronic nicotine dependence, heavy dose with recent cessation with possible consideration of withdrawal from nicotine would be considered as well. 5. Rule out malignancy, left lower hemithorax until the resolution occurred with followup CT scan of the chest in the near future short-term followup. PLAN AND MANAGEMENT: Decrease the Solu-Medrol dose to 40 mg every 8 hours from 60 mg q.8h. Continue bronchodilators. Monitor respiratory closely, consider the bronchoscopy if the respiratory symptoms persist and does not resolve further. No changes in the supportive care. Monitor mental status closely. Reduce the antibiotic Bactrim and de-escalation based on the current culture results. Discontinuation of Zithromax and the vancomycin and continue the patient only on the Levaquin as the primary antibiotics. Followup chest x-ray in a couple of days will be obtained for the patient to reassess the progression of the current infiltration and other radiologic abnormality. Short-term followup CT scan for this patient to be done after the discharge in about 6 [place], [place] REPORT OF CONSULTATION NAME: DONNA MERAZ UNIT #: [id number] ROOM: [facility] DOCTOR: SHANNAN ASCENCIO MD,SEBASTIAN BIRTHDATE: 58 weeks to 8 weeks to document the resolving current abnormality in the left lower lobe and if it remains persistent, consider assessment of possible underlying malignancy. Nicotine replacement patches were ordered. She was also noted with some mild hypokalemia which will be treated with supplementation of potassium. Thanks for allowing me to participate in the care of this patient. SEBASTIAN CAMPBELL MD CM:CONSTR:REPORT OF CONSULTATION 1225 04/05/17 0648 interface
[2017-04-01 14:55] VITALS: BP 140/83
[~2017-04-01 14:55] MED LIST changes: +INHALER; +PROAIR HFA8.5 GM INH; +PULMICORT FLE180 MCG INH
[2017-04-01 15:38] LABS: HEMOGLOBIN 14.7 g/dl (12.0-16.0); MEAN CORPUSCULAR HGB 31.7 pg (27.0-31.0); MEAN CORPUSCULAR HGB CONC 33.4 g/dl (33.0-37.0); MEAN PLATELET VOLUME 11.1 fl (9.6-12.3); PLATELET COUNT AUTOMATED 229 10*3/uL (130-400); RED BLOOD COUNT 4.63 10*6/uL (4.10-5.10); RED CELL DISTRI WIDTH 15.5 % (0-14.5); WHITE BLOOD COUNT 17.7 10*3/uL (4.8-10.8)
[2017-04-01 15:57] LABS: ALBUMIN 2.3 gm/dl (3.1-4.5); ALKALINE PHOSPHATASE 146 U/L (45-117); BUN 13 mg/dl (7-24); CHLORIDE 91 mmol/L (98-107); CREATININE 0.83 mg/dL (0.55-1.02); POTASSIUM 3.9 mmol/L (3.5-5.1); SGOT/AST 42 IU/L (3-35); SGPT/ALT 32 U/L (12-78); SODIUM 129 mmol/L (136-145); TOTAL PROTEIN 7.7 gm/dL (6.4-8.2)
[2017-04-01 15:58] LABS: TROPONIN I < 0.015 ng/ml (<0.045)
[2017-04-01 16:01] VITALS: BP 114/61
[2017-04-01 16:05] LABS: ATYPICAL LYMPHS 1 % (0-0); PLATELET SUFFICIENCY NORMAL (NORMAL); TOTAL CELLS COUNTED 100 #CELLS
[2017-04-01 16:45] VITALS: BP 107/59
--- NOTE | 2017-04-01 17:25 | NUR ---
A 56, admitted to ICCU, under the services of HECTOR Denis DO with a diagnosis of DT,HCAP AND SEVERE SEPSIS. Chief complaint is SHORTNESS OF BREATH. Patient arrived via stretcher from ER. Monitor applied. Initial assessment completed. Vital signs taken and recorded. HECTOR DENIS DO notified of admission to the unit. Orders received. See assessment for past medical history, medications and allergies. Patient and/or family oriented to unit. [facility] ICCU visitation policy reviewed. Clothing/patient valuable form completed. ALIE ANTUNEZ
[2017-04-01 17:30] VITALS: BP 92/60
[2017-04-01] MEDS ORDERED: SYMB160 INH (17:54)
--- NOTE | 2017-04-01 17:55 | NUR ---
I SPOKE WITH PHARMACIST KEVYN AT [facility] IN [place] FOR PT'S CURRENT MED LIST. HE CAN NOT FAX LIST BUT WENT OVER THEM VERBALLY WITH ME.
[2017-04-01 19:38] VITALS: BP 92/48
--- NOTE | 2017-04-01 19:45 | NUR ---
PATIENT LYING IN BED, HAS NO COMPLAINTS AT THIS TIME OTHER THAN BEING COLD. PATIENT HAS SLIGHT NOTICIBLE TREMORS IN UPPER EXTREMITIES. O2 IN PLACE, FLUIDS RUNNING. LIBRIUM TAPER STARTED. WILL CONTINUE TO MONITOR.
[2017-04-02] VITALS: BP 88/62
[2017-04-02 04:00] VITALS: BP 88/64
[2017-04-02 04:45] LABS: MEAN CORPUSCULAR HGB CONC 32.6 g/dl (33.0-37.0); MEAN PLATELET VOLUME 11.1 fl (9.6-12.3); PLATELET COUNT AUTOMATED 193 10*3/uL (130-400); RED BLOOD COUNT 3.81 10*6/uL (4.10-5.10); RED CELL DISTRI WIDTH 15.5 % (0-14.5); WHITE BLOOD COUNT 10.4 10*3/uL (4.8-10.8)
[2017-04-02 04:55] LABS: HEMATOCRIT 37.4 % (37.0-47.0); HEMOGLOBIN 12.2 g/dl (12.0-16.0); MEAN CELL VOLUME 98.2 fl (81.0-99.0)
[2017-04-02 05:16] LABS: ALBUMIN 1.9 gm/dl (3.1-4.5); BUN 8 mg/dl (7-24); CHLORIDE 103 mmol/L (98-107); CHOLESTEROL 112 mg/dL (<200); CREATININE 0.37 mg/dL (0.55-1.02); HDL CHOLESTEROL 40 mg/dl (40-60); LDL CHOLESTEROL 59 mg/dL (9-159); PHOSPHOROUS 1.8 mg/dL (2.5-4.9); POTASSIUM 3.4 mmol/L (3.5-5.1); SGOT/AST 27 IU/L (3-35); SGPT/ALT 26 U/L (12-78); SODIUM 137 mmol/L (136-145); TRIGLYCERIDES 65 mg/dl (<150); VLDL CHOLESTEROL 13 mg/dL (6-40)
[2017-04-02 05:17] LABS: PLATELET SUFFICIENCY NORMAL (NORMAL); TOTAL CELLS COUNTED 100 #CELLS
[2017-04-02 05:22] LABS: ALKALINE PHOSPHATASE 108 U/L (45-117); THYROID STIM HORMONE (HS) 0.281 uIU/ml (0.358-4.75); TOTAL PROTEIN 6.3 gm/dL (6.4-8.2)
[2017-04-02 06:35] LABS: VITAMIN D, 25-HYDROXY 46.7 ng/mL (30-100)
[2017-04-02 08:00] VITALS: BP 138/80
--- NOTE | 2017-04-02 08:00 | NUR ---
Burn Nurse in to talk to patient. Patient states lives at HOME with HER SISTER. There are A FEW steps in the home. Physician: DR BARAJAS [facility] [place] Urgent Care services: NONE Patient's level of ADLs: INDEPENDENT Patient has working utilities: YES DME: NEB/O2 FROM [facility] Follow-up physician's appointment after d/c: WILL BE MADE PRIOR TO DC Does patient want to access PORTAL?: Discharge plan HOME. MARCELLA DESAI
[2017-04-02 12:00] VITALS: BP 94/60
--- NOTE | 2017-04-02 13:50 | NUR ---
RESTING IN BED. DENIES ANY COMPLAINTS. VITALS STABLE. PULSE OX 99% ON 2L NASAL CANNULA. I/E WHEEZE HEARD IN LUNG DE OLIVEIRA. AFEBRILE. SHORT OF BREATH WITH ANY EXERTION.
[2017-04-02 16:00] VITALS: BP 110/57
[2017-04-02] MEDS ORDERED: ASPIRIN CHILDRE81 MG PO (17:01)
--- NOTE | 2017-04-02 19:10 | NUR ---
PATIENT LYING IN BED, DOES HAVE COMPLAINT OF FEELING ANXIOUS AND STATED SHES FEELING WORSE. PATIENT WAS GIVEN ATIVAN, WILL MONITOR AND REASSESS.
[2017-04-02 19:59] VITALS: BP 111/61
--- NOTE | 2017-04-02 20:00 | NUR ---
PATIENT TALKING/CUSING IN HER SLEEP, EASILY AWAKES. PATIENT ORIENT, KNOWS WHERE SHE IS, BUT WAS TALKING TO HER DOG. PATIENT THEN BECAME MORE ORIENTED, UP TO USE BEDSIDE. SHAKY/TREMORS, PATIENT STATED SHE IS MORE SHAKY THAN YESTERDAY. WILL CONTINUE TO MONITOR.
--- NOTE | 2017-04-02 20:29 | NUR ---
24 HR chart check completed.
--- NOTE | 2017-04-02 20:40 | NUR ---
PATIENT STATED SHE WAS GOING TO THROW UP, BASIN WAS GIVEN. PATIENT SIP UP CLEAR SPUTUM. ZOFRAN WAS GIVEN. WILL REASSESS.
--- NOTE | 2017-04-02 21:30 | NUR ---
ZOFRAN EFFECTIVE FOR NAUSEA.
[2017-04-03] VITALS: BP 115/69
[2017-04-03 04:00] VITALS: BP 117/65
--- NOTE | 2017-04-03 07:31 | NUR ---
Shift chart check completed.24 HR chart check completed.
--- NOTE | 2017-04-03 07:31 | NUR ---
ON ASSESSMENT PATIENT IS ALERT, THOUGHT SHE WAS IN [facility] BUT REORIENTED FAIRLY WELL. DID COMMENT "I'M GOING HOME TODAY ONE WAY OR THE OTHER". SEEMED SURPRISED WHEN I TOLD HER SHE WAS BEING TREATED FOR PNEUMONIA. IV FLUIDS CONTINUE PER ORDER. SEE ALL APPROPRIATE INTERVENTIONS.
[2017-04-03 07:33] VITALS: BP 122/80
[2017-04-03 07:45] LABS: ALBUMIN 2.1 gm/dl (3.1-4.5); ALKALINE PHOSPHATASE 90 U/L (45-117); BUN 5 mg/dl (7-24); CHLORIDE 108 mmol/L (98-107); CREATININE 0.36 mg/dL (0.55-1.02); PHOSPHOROUS 1.9 mg/dL (2.5-4.9); POTASSIUM 3.2 mmol/L (3.5-5.1); SGOT/AST 31 IU/L (3-35); SGPT/ALT 34 U/L (12-78); SODIUM 140 mmol/L (136-145); TOTAL PROTEIN 5.9 gm/dL (6.4-8.2)
[2017-04-03 07:48] LABS: HEMATOCRIT 37.5 % (37.0-47.0); HEMOGLOBIN 12.2 g/dl (12.0-16.0); MEAN CELL VOLUME 98.4 fl (81.0-99.0); MEAN CORPUSCULAR HGB CONC 32.5 g/dl (33.0-37.0); MEAN PLATELET VOLUME 10.7 fl (9.6-12.3); NUCLEATED RED BLOOD CELL 0.1 % (0.0-0.0); RED BLOOD COUNT 3.81 10*6/uL (4.10-5.10); RED CELL DISTRI WIDTH 15.6 % (0-14.5); WHITE BLOOD COUNT 18.3 10*3/uL (4.8-10.8)
[2017-04-03 07:49] LABS: PLATELET COUNT AUTOMATED 275 10*3/uL (130-400)
[2017-04-03 08:16] LABS: PLATELET SUFFICIENCY NORMAL (NORMAL); TOTAL CELLS COUNTED 100 #CELLS
[2017-04-03 08:17] LABS: TOXIC GRANULATION SLIGHT
--- NOTE | 2017-04-03 10:13 | NUR ---
MEDICATED WITH PRN ATIVAN PER ORDER.
--- NOTE | 2017-04-03 10:32 | NUR ---
PT IS NOW "PINK SLIPPED" AND THERE HAS BEEN A VOICEMAIL LEFT FOR DR BABITA CIFUENTES CONSULT. NEW IV SITE OBTAINED RT ANTECUBITAL. SHE HAD IV ATIVAN AT 1015 FOR AGITATION/CURSING AND SHE'S MORE COOPERATIVE AT THIS TIME.
--- NOTE | 2017-04-03 10:38 | NUR ---
A NEW IV SITE OBTAINED RT ANTECUBITAL PRIOR TO HER LEAVING FOR CT SCAN.
--- NOTE | 2017-04-03 11:49 | NUR ---
PT HAS RETURNED FROM CT SCAN. IS COOPERATIVE. DR CIFUENTES HERE TO SEE PATIENT.
[2017-04-03 12:00] VITALS: BP 124/70
--- NOTE | 2017-04-03 12:50 | NUR ---
Discussed VNA services for home with patient. She refused stating her sister takes care of all her needs and she doesn't need or want any nurses coming into the home.
[2017-04-03 16:00] VITALS: BP 119/72
--- NOTE | 2017-04-03 16:20 | NUR ---
IV ATIVAN 1MG FOR AGITATION, NOT SEVERE THIS MORNING, BUT RAMBLING CONVERSATION.
--- NOTE | 2017-04-03 17:05 | NUR ---
DR SANTIAGO NOTIFIED THAT PT C/O RT UPPER ARM DISCOMFORT. HER SISTER IS HERE AND STATES SHE'S "FALLEN A FEW TIMES SINCE SHE HAD HER STROKE". THERE IS AN ECCHYMOTIC AREA JUST ABOVE THE ANTECUBITAL AND HER ARM IS TENDER TO PALPATION, ALTHOUGH NO OBVIOUS DEFORMITY.
--- NOTE | 2017-04-03 17:59 | NUR ---
DR CAMPBELL NOTIFIED OF CONSULTATION.
[2017-04-03 20:00] VITALS: BP 122/63; BP 133/89
--- NOTE | 2017-04-03 20:17 | NUR ---
PT RESTING IN BED WITH NO C/O ANY.
[2017-04-04] VITALS: BP 125/70
[2017-04-04 05:57] LABS: ALKALINE PHOSPHATASE 82 U/L (45-117); BUN 4 mg/dl (7-24); CHLORIDE 109 mmol/L (98-107); CREATININE 0.39 mg/dL (0.55-1.02); PHOSPHOROUS 2.4 mg/dL (2.5-4.9); POTASSIUM 3.4 mmol/L (3.5-5.1); SGOT/AST 22 IU/L (3-35); SGPT/ALT 35 U/L (12-78); SODIUM 142 mmol/L (136-145); THYROXINE (T4) TOTAL 6.3 ug/dl (4.8-13.9); TOTAL PROTEIN 5.6 gm/dL (6.4-8.2)
[2017-04-04 06:05] LABS: THYROID STIM HORMONE (HS) 0.261 uIU/ml (0.358-4.75)
[2017-04-04 06:11] LABS: HEMATOCRIT 37.9 % (37.0-47.0); HEMOGLOBIN 12.2 g/dl (12.0-16.0); MEAN CORPUSCULAR HGB 31.9 pg (27.0-31.0); MEAN CORPUSCULAR HGB CONC 32.2 g/dl (33.0-37.0); MEAN PLATELET VOLUME 10.5 fl (9.6-12.3); PLATELET COUNT AUTOMATED 306 10*3/uL (130-400); RED BLOOD COUNT 3.83 10*6/uL (4.10-5.10); RED CELL DISTRI WIDTH 15.8 % (0-14.5); WHITE BLOOD COUNT 13.3 10*3/uL (4.8-10.8)
[2017-04-04 07:40] LABS: PLATELET SUFFICIENCY NORMAL (NORMAL); TOTAL CELLS COUNTED 100 #CELLS; TOXIC GRANULATION SLIGHT
[2017-04-04 12:00] VITALS: BP 147/94
[2017-04-04 16:00] VITALS: BP 147/90
[2017-04-04 20:00] VITALS: BP 118/71
[2017-04-05] VITALS: BP 133/76
[2017-04-05 04:00] VITALS: BP 131/75
[2017-04-05 04:49] LABS: HEMATOCRIT 41.5 % (37.0-47.0); HEMOGLOBIN 13.4 g/dl (12.0-16.0); LYMPH # 1.1 10*3/uL (1.3-4.4); LYMPH % 9.1 % (27.0-41.0); MEAN CELL VOLUME 97.9 fl (81.0-99.0); MEAN CORPUSCULAR HGB 31.6 pg (27.0-31.0); MEAN CORPUSCULAR HGB CONC 32.3 g/dl (33.0-37.0); MEAN PLATELET VOLUME 10.1 fl (9.6-12.3); MONO # 0.3 10*3/uL (0.1-1.0); MONO % 2.5 % (3.0-9.0); NEUT # 10.7 10*3/uL (2.3-7.9); NEUT % 87.5 % (47.0-73.0); PLATELET COUNT AUTOMATED 366 10*3/uL (130-400); RED BLOOD COUNT 4.24 10*6/uL (4.10-5.10); RED CELL DISTRI WIDTH 15.8 % (0-14.5); WHITE BLOOD COUNT 12.3 10*3/uL (4.8-10.8)
[2017-04-05 05:18] LABS: BUN 3 mg/dl (7-24); CHLORIDE 108 mmol/L (98-107); POTASSIUM 3.7 mmol/L (3.5-5.1); SODIUM 144 mmol/L (136-145)
--- NOTE | 2017-04-05 06:57 | NUR ---
PATIENT IS RESTING IN BED ON THE LEFT SIDE. PATIENT HAS DIFFUSED RALES THROUGHOUT LUNGS. PATIENT DENIES SOB, PAIN, OR DISCOMFORT THROUGHOUT SHIFT. PATIENT IS RECEIVING 2LPM VIA NC. PATIENT HAS UNSTEADY GAIT AND NEEDS ASSIST ON AMBULATION. HOB ELEVATED, SKIN W/D/I, CALL LIGHT SYSTEM REINFORCED. SEE ASSESSMENT.
[2017-04-05 08:00] VITALS: BP 131/75
--- NOTE | 2017-04-05 08:00 | NUR ---
PATIENT RESTING IN BED. DENIES DISCOMFORT AT THIS TIME. PATIENT IS HOPING TO GO HOME [place].
[2017-04-05 12:00] VITALS: BP 130/67
[2017-04-05] MEDS ORDERED: LEVAQUIN750 M1 PO (13:55)
[2017-04-05] MEDS ORDERED: PREDNISONE10 MG PO (13:55)
[2017-04-05] MEDS ORDERED: LACTULOSE20 GM/30 M PO (13:57)
--- NOTE | 2017-04-05 15:15 | NUR ---
PATIENT DISCHARGED TO HOME. DISCHARGE INSTRUCTIONS GIVEN AND REVIEWED. IV AND LAUNCH CHECK OUT DISCONTINUED.
== END 2017-04-05 15:15 | disposition home or self-care (01) | DRG 871 ==
LOC: ED 14:55 → ICCU 16:30 → EDHOLD 16:30 → ICCU 16:50
PROVIDERS: Family Medicine; Internal Medicine; Student in an Organized Health Care Education/Training Program; ADMIT Internal Medicine
PROC: 3E0234Z Introduction of Serum, Toxoid and Vaccine into Muscle, Percutaneous Approach (ICD-10-PCS; principal; 2017-04-05)
DX: R65.20 Severe sepsis without septic shock (principal); J18.9 Pneumonia, unspecified organism; J96.21 Acute and chronic respiratory failure with hypoxia; E43 Unspecified severe protein-calorie malnutrition; G93.41 Metabolic encephalopathy; F10.231 Alcohol dependence with withdrawal delirium; E87.2 Acidosis; E87.8 Other disorders of electrolyte and fluid balance, not elsewhere classified; J44.0 Chronic obstructive pulmonary disease with (acute) lower respiratory infection; J44.1 Chronic obstructive pulmonary disease with (acute) exacerbation; F10.232 Alcohol dependence with withdrawal with perceptual disturbance; E87.1 Hypo-osmolality and hyponatremia; F31.60 Bipolar disorder, current episode mixed, unspecified; A41.9 Sepsis, unspecified organism; K21.9 Gastro-esophageal reflux disease without esophagitis; R73.9 Hyperglycemia, unspecified; E88.09 Other disorders of plasma-protein metabolism, not elsewhere classified; E87.6 Hypokalemia; F17.200 Nicotine dependence, unspecified, uncomplicated; R74.0 Nonspecific elevation of levels of transaminase and lactic acid dehydrogenase [LDH]; G40.909 Epilepsy, unspecified, not intractable, without status epilepticus; D72.810 Lymphocytopenia; Z79.82 Long term (current) use of aspirin; Z79.899 Other long term (current) drug therapy; Z99.81 Dependence on supplemental oxygen; Z23 Encounter for immunization; Z88.6 Allergy status to analgesic agent; Z88.5 Allergy status to narcotic agent; Z88.0 Allergy status to penicillin; Z83.3 Family history of diabetes mellitus; Z82.49 Family history of ischemic heart disease and other diseases of the circulatory system; Z80.3 Family history of malignant neoplasm of breast; Z86.73 Personal history of transient ischemic attack (TIA), and cerebral infarction without residual deficits; Z87.19 Personal history of other diseases of the digestive system; Z68.23 Body mass index [BMI] 23.0-23.9, adult

== ENCOUNTER 2017-10-20 14:46 | Inpatient (IN) | payer OTHER ==
[~2017-10-20] VITALS: Ht 162.6 cm; Wt 57.7 kg
--- NOTE | ~2017-10-20 | CON ---
[place], [place] REPORT OF CONSULTATION NAME: DONNA MERAZ [facility] #: [id number] UNIT #: [id number] ROOM: 426 DOCTOR: SEBASTIAN SKELTON MD BIRTHDATE: [birth year] DOS: 10/21/2017 REASON FOR CONSULTATION: To assess the patient's current ongoing acute respiratory complaints. HISTORY OF PRESENT ILLNESS: A 57-year-old white female who has been known to me seen only once in the office in 12/2016, has not any followup appointment made for the patient was canceled by the patient previously, presented to Emergency Room where the patient has been noted with symptoms of having progressive increased shortness of breath ongoing for the past 1 week. The symptoms started with the patient with coughing as well, which was noted with a small to moderate amount of thick green sputum expectoration. She denies symptoms of hemoptysis with that. She does complain of symptoms of chest tightness and wheezing as well. Denies symptoms of hemoptysis. The patient denies symptoms of chest trauma. She reported pain, which is described in the lower ribcage for this patient because of the coughing. REVIEW OF SYSTEMS: CONSTITUTIONAL SYMPTOMS: With reported symptoms of fatigue and tiredness. There were no symptoms of fever or chills. EYES: Denied burning, redness, discharge or diplopia. EARS, NOSE, THROAT: No symptoms of sore throat, hoarseness, otalgia, postnasal drainage or epistaxis. CARDIOVASCULAR: Denies any edema of the lower extremities or palpitations or angina pain. GASTROINTESTINAL: Denies dysphagia, nausea, vomiting, diarrhea, abdominal pain, hematemesis, melena, or hematochezia. GENITOURINARY: No dysuria, suprapubic pain or hematuria. MUSCULOSKELETAL: No acute joint pain, redness, or tenderness. SKIN: Denies abnormal lesions or rashes. MUSCULOSKELETAL: Denies any joint pain, redness or tenderness or deformities. CENTRAL NERVOUS SYSTEM: Denies any seizures, diplopia, headache or tingling sensation of the extremities. Remaining systems of the patient was reported as negative. PAST MEDICAL HISTORY: Known with history of: 1. Chronic obstructive pulmonary disease with FEV1 of 30% for the patient was noted in 12/2016 assessment consistent with severe chronic obstructive pulmonary disease. 2. Bipolar disorder. 3. Past cerebrovascular accident. 4. Gastroesophageal reflux. 5. Prediabetes. 6. Seizure disorder, which is controlled. 7. Vitamin D deficiency. PAST SURGICAL HISTORY: Reported: 1. . 2. Dental surgery. [place], [place] REPORT OF CONSULTATION NAME: DONNA MERAZ UNIT #: [id number] ROOM: 426 DOCTOR: PABLITO SKELTON MDM BIRTHDATE: [birth year] SOCIAL HISTORY: The patient stated that she is , has one child, lives at home. Smoking for the patient with previously known up to 5-pack of cigarettes per day started as a teenager, gradually increased tobacco use, stating currently smoking about 3 cigarettes a day. FAMILY HISTORY: The patient's father at the age of 60-year-old, complication of diabetes mellitus. Mother at the age of 60-year-old from complication of metastatic breast cancer. HOME MEDICATIONS: Reported by the patient as use of Symbicort, omeprazole, aspirin, and ProAir HFA inhaler p.r.n. use. DRUG ALLERGY HISTORY: Reported: 1. VICODIN. 2. IBUPROFEN. 3. PENICILLINS. PHYSICAL EXAMINATION: GENERAL: This is a 57-year-old white female patient appeared to be quite older than her stated age for this patient at the time of assessment. There was no acute distress. Height of 5 feet 4 inches, weight of 127 pounds, BMI 21.8. VITAL SIGNS: The patient was recorded as normal temperature since admission of yesterday. Respiratory rate 19-20, heart rate of 96-99, blood pressure 104/59-131/80. Pulse oxygen saturation of the patient noted on 2 liters nasal cannula was 100% saturation. HEENT: Examination shows head was atraumatic. Eyes nonicterus. NECK: Supple. CARDIOVASCULAR: S1, S2 is audible. LUNGS: The patient was noted moderate decreased breath sounds. Diffuse expiratory wheezing. There were no crackles. ABDOMEN: Soft, flat, nontender. Bowel sounds present. EXTREMITIES: Without any acute edema. MUSCULOSKELETAL: Noted without any acute deformities. SKIN: No lesions or rashes. LABORATORY DATA: CMP of the patient this morning, glucose 205, BUN normal, creatinine was normal. The PT, PTT this morning was normal. CBC this morning was normal. The chest x-ray of the patient that was done for the patient one-view was noted with changes, hyperinflation without any acute pulmonary infiltration. The patient has a CTA of the chest was also ordered by the primary care attending was reviewed for this patient does not show any evidence of pulmonary embolism. Changes of emphysema noted with small hiatal hernia. There were no acute pulmonary infiltration or other abnormalities. IMPRESSION: 1. The patient who has been currently admitted to the hospital noted with acute exacerbation of chronic obstructive pulmonary disease for this patient as well. History of past tobacco use for this patient with smoking few cigarettes a day as described by the patient. 2. Acute bacterial bronchitis was also noted for the patient as well. [place], [place] REPORT OF CONSULTATION NAME: DONNA MERAZ UNIT #: [id number] ROOM: 426 DOCTOR: SEBASTIAN SKELTON MD BIRTHDATE: [birth year] 3. Acute exacerbation of chronic obstructive pulmonary disease as well. 4. History of gastroesophageal reflux of the patient with small hiatal hernia. PLAN OF MANAGEMENT: The patient has been currently getting the intravenous Solu-Medrol for the patient as 40 mg b.i.d. that should suffice. Continue DuoNeb every 4 hours. Continue antibiotic Rocephin and Zithromax for the community-acquired bronchitis, bacterial bronchitis management. Usual care, other supportive therapy, plan of management. Order the sputum for Gram stain and culture. Also, start the patient on the Dulera for the patient, alternative to Symbicort available in formulary in this hospital. Additional treatment changes will be recommended based on the progression of the illness. Complete and absolute tobacco cessation was addressed with the patient and counseling was given. SEBASTIAN CAMPBELL MD CM:CONSTR:REPORT OF CONSULTATION 1234 10/28/17 0756 interface
--- NOTE | ~2017-10-20 | EKG ---
[place], [place] ELECTROCARDIOGRAM REPORT NAME: DONNA MERAZ UNIT #: [id number] ROOM: 426 DOCTOR: SHANNAN ASCENCIO MD,SEBASTIAN BIRTHDATE: [birth year] DOS: 10/20/2017 TIME: 3:36 p.m. The electrocardiogram shows a normal sinus rhythm. Heart rate 89 beats per minute. Nonspecific ST-T changes were noted. SEBASTIAN CAMPBELL MD CM:EKGRPT:ELECTROCARDIOGRAM REPORT [id number] 1325 SEBASTIAN ASCENCIO MD
--- NOTE | ~2017-10-20 | PR ---
[place], [place] PROGRESS NOTE NAME: DONNA MERAZ [facility] #: [id number] UNIT #: [id number] ROOM: 426 DOCTOR: SHANNAN ASCENCIO MD,SEBASTIAN BIRTHDATE: [birth year] DOS: 10/22/2017 SUBJECTIVE: The patient has been noted comfortable at this time without acute distress. Denies symptoms of chest pain, coughing, shortness of breath. The patient has been improving progressively. There were no symptoms of chest pain. OBJECTIVE: VITAL SIGNS: Normal temperature, respiratory rate 20, heart rate of 112, blood pressure 110/68. Pulse oxygen saturation recorded as 98% saturation on 2 liters nasal cannula. HEENT: No acute change. CARDIOVASCULAR: S1, S2 audible. LUNGS: Clear with no crackles. ABDOMEN: Soft, nontender. EXTREMITIES: Without any acute edema. LABORATORY DATA: BMP: Glucose 156. Normal BUN and creatinine. Blood culture, no bacterial growth on admission. IMPRESSION: 1. Progressive resolution and improvement was continued for acute exacerbation of chronic obstructive pulmonary disease and acute bronchitis. 2. History of chronic nicotine dependence as well. PLAN OF MANAGEMENT: The patient could be discharged home on oral medication this time with tapering prednisone and antibiotics, use of the current previous medication for the previous COPD and tobacco cessation was encouraged. SEBASTIAN CAMPBELL MD CM:PNTRANS [id number] SEBASTIAN ASCENCIO MD 10/28/17 0757 interface
[~2017-10-20 14:46] MED LIST changes: +ASPIRIN CHILDRE81 MG PO; +LACTULOSE20 GM/30 M PO; +SYMB160 INH
[2017-10-20 14:52] VITALS: BP 133/93
[2017-10-20 15:29] LABS: BASO % 0.6 % (0.0-1.0); EOS # 0.1 10*3/uL (0.0-0.4); EOS % 1.3 % (1.0-4.0); HEMOGLOBIN 14.6 g/dl (12.0-16.0); LYMPH % 42.4 % (27.0-41.0); MEAN CELL VOLUME 92.2 fl (81.0-99.0); MEAN CORPUSCULAR HGB 30.6 pg (27.0-31.0); MEAN CORPUSCULAR HGB CONC 33.2 g/dl (33.0-37.0); MEAN PLATELET VOLUME 10.2 fl (9.6-12.3); MONO # 0.5 10*3/uL (0.1-1.0); MONO % 7.7 % (3.0-9.0); NEUT # 3.3 10*3/uL (2.3-7.9); NEUT % 47.9 % (47.0-73.0); PLATELET COUNT AUTOMATED 205 10*3/uL (130-400); RED BLOOD COUNT 4.77 10*6/uL (4.10-5.10); RED CELL DISTRI WIDTH 14.6 % (0-14.5)
[2017-10-20 15:54] LABS: ALBUMIN 3.6 gm/dl (3.1-4.5); ALKALINE PHOSPHATASE 99 U/L (45-117); BUN 3 mg/dl (7-24); CHLORIDE 98 mmol/L (98-107); CREATININE 0.48 mg/dL (0.55-1.02); POTASSIUM 3.9 mmol/L (3.5-5.1); SGOT/AST 19 IU/L (3-35); SGPT/ALT 18 U/L (12-78); SODIUM 136 mmol/L (136-145)
[2017-10-20 15:56] LABS: TROPONIN I < 0.015 ng/ml (<0.045)
[2017-10-20 16:15] VITALS: BP 131/80
[2017-10-20 17:30] VITALS: BP 135/72
[2017-10-20 17:58] VITALS: BP 140/82
[2017-10-20 20:00] VITALS: BP 125/72
[2017-10-21] VITALS: BP 104/59
[2017-10-21 07:39] LABS: HEMATOCRIT 44.6 % (37.0-47.0); HEMOGLOBIN 14.6 g/dl (12.0-16.0); MEAN CELL VOLUME 92.7 fl (81.0-99.0); MEAN CORPUSCULAR HGB 30.4 pg (27.0-31.0); MEAN CORPUSCULAR HGB CONC 32.7 g/dl (33.0-37.0); MEAN PLATELET VOLUME 10.6 fl (9.6-12.3); PLATELET COUNT AUTOMATED 205 10*3/uL (130-400); RED BLOOD COUNT 4.81 10*6/uL (4.10-5.10); RED CELL DISTRI WIDTH 15.1 % (0-14.5); WHITE BLOOD COUNT 6.9 10*3/uL (4.8-10.8)
[2017-10-21 08:00] VITALS: BP 116/76
[2017-10-21 08:06] LABS: ACT PARTIAL THROMBO TIME 23.5 SECONDS (20.8-31.5)
[2017-10-21 08:07] LABS: ALBUMIN 3.6 gm/dl (3.1-4.5); ALKALINE PHOSPHATASE 91 U/L (45-117); BUN 6 mg/dl (7-24); CHLORIDE 97 mmol/L (98-107); CHOLESTEROL 208 mg/dL (<200); CREATININE 0.69 mg/dL (0.55-1.02); FREE T4 0.83 ng/dl (0.76-1.46); HDL CHOLESTEROL 104 mg/dl (40-60); LDL CHOLESTEROL 94 mg/dL (9-159); PHOSPHOROUS 3.2 mg/dL (2.5-4.9); POTASSIUM 3.9 mmol/L (3.5-5.1); SGOT/AST 13 IU/L (3-35); SGPT/ALT 17 U/L (12-78); SODIUM 137 mmol/L (136-145); TOTAL PROTEIN 7.1 gm/dL (6.4-8.2); TRIGLYCERIDES 51 mg/dl (<150); VLDL CHOLESTEROL 10 mg/dL (6-40)
[2017-10-21 08:11] LABS: TOTAL CELLS COUNTED 100 #CELLS
[2017-10-21 08:12] LABS: PLATELET SUFFICIENCY NORMAL (NORMAL); THYROID STIM HORMONE (HS) 0.477 uIU/ml (0.358-4.75)
[2017-10-21 11:30] LABS: VITAMIN D, 25-HYDROXY 28.5 ng/mL (30-100)
[2017-10-21 12:00] VITALS: BP 100/79
[2017-10-21 16:00] VITALS: BP 117/58
[2017-10-21 20:00] VITALS: BP 111/62
[2017-10-22] VITALS: BP 111/71
[2017-10-22 07:46] LABS: HEMATOCRIT 42.6 % (37.0-47.0); MEAN CELL VOLUME 93.4 fl (81.0-99.0); MEAN CORPUSCULAR HGB 30.7 pg (27.0-31.0); MEAN CORPUSCULAR HGB CONC 32.9 g/dl (33.0-37.0); MEAN PLATELET VOLUME 10.6 fl (9.6-12.3); PLATELET COUNT AUTOMATED 178 10*3/uL (130-400); RED BLOOD COUNT 4.56 10*6/uL (4.10-5.10); RED CELL DISTRI WIDTH 15.2 % (0-14.5); WHITE BLOOD COUNT 17.4 10*3/uL (4.8-10.8)
[2017-10-22 08:00] VITALS: BP 110/68
[2017-10-22 08:07] LABS: TOTAL CELLS COUNTED 100 #CELLS
[2017-10-22 08:08] LABS: PLATELET SUFFICIENCY NORMAL (NORMAL)
[2017-10-22 08:10] LABS: BUN 5 mg/dl (7-24); CHLORIDE 101 mmol/L (98-107); CREATININE 0.56 mg/dL (0.55-1.02); POTASSIUM 4.1 mmol/L (3.5-5.1); SODIUM 138 mmol/L (136-145)
[2017-10-22] MEDS ORDERED: SYMB160 INH (10:52)
[2017-10-22] MEDS ORDERED: PRILOSEC20 M1 PO (10:52)
[2017-10-22] MEDS ORDERED: ZITHROMAX250 MG PO (10:52)
[2017-10-22] MEDS ORDERED: PREDNISONE10 MG PO (10:52)
== END 2017-10-22 11:21 | disposition home or self-care (01) | DRG 193 ==
LOC: ED 14:46 → 4E 16:50 → EDHOLD 16:50 → 4E 17:24
PROVIDERS: Internal Medicine; Nurse Practitioner Family
DX: J18.9 Pneumonia, unspecified organism (principal); J96.00 Acute respiratory failure, unspecified whether with hypoxia or hypercapnia; J44.1 Chronic obstructive pulmonary disease with (acute) exacerbation; J44.0 Chronic obstructive pulmonary disease with (acute) lower respiratory infection; R07.89 Other chest pain; G40.909 Epilepsy, unspecified, not intractable, without status epilepticus; J20.8 Acute bronchitis due to other specified organisms; F17.210 Nicotine dependence, cigarettes, uncomplicated; F31.9 Bipolar disorder, unspecified; K21.9 Gastro-esophageal reflux disease without esophagitis; Z88.0 Allergy status to penicillin; Z88.6 Allergy status to analgesic agent; Z87.01 Personal history of pneumonia (recurrent); Z86.73 Personal history of transient ischemic attack (TIA), and cerebral infarction without residual deficits; Z83.3 Family history of diabetes mellitus; Z80.3 Family history of malignant neoplasm of breast; Z82.49 Family history of ischemic heart disease and other diseases of the circulatory system; Z79.82 Long term (current) use of aspirin; Z71.6 Tobacco abuse counseling

== ENCOUNTER 2018-12-03 21:33 | Inpatient (IN) | payer OTHER ==
[~2018-12-03] VITALS: Ht 152.4 cm; Wt 59.2 kg
--- NOTE | ~2018-12-03 | PR ---
[place], [place] PROGRESS NOTE NAME: DONNA MERAZ UNIT #: [id number] ROOM: 532 DOCTOR: SHANNAN ASCENCIO MD,SEBASTIAN BIRTHDATE: [birth year] DOS: 12/05/2018 PULMONARY PROGRESS NOTE SUBJECTIVE: She has been noted comfortable at this time with reduction in respiratory symptoms slowly, but gradually noted. Denies symptoms of fever or chills. Coughing has been subsiding. The wheezing and shortness of breath, was slowly resolving. The patient denies symptoms of chest pain. OBJECTIVE: VITAL SIGNS: Normal temperature, respiratory rate 20, heart rate 84, blood pressure 124/68. Pulse ox saturation on 4 liters nasal cannula 99% saturation. HEENT: Examination shows head was atraumatic. Eyes nonicterus. NECK: Supple. CARDIOVASCULAR: S1, S2 audible. LUNGS: Noted without any crackles. Expiratory wheezing was decreasing, but not resolved. Moderate wheezing was still noted. ABDOMEN: Soft, nontender. Bowel sounds present. EXTREMITIES: No new change. IMPRESSION: The patient with an ongoing acute exacerbation of chronic obstructive pulmonary disease, acute tracheobronchitis with partial improvement in respiratory symptoms noted, history of past heavy nicotine use. PLAN OF MANAGEMENT: Continue current dose of Solu-Medrol 40 mg b.i.d. for the next 24 hours. The patient was noted 4 liters of oxygen supplementation will be assessed for home oxygen need for possible discharge in the morning. SEBASTIAN CAMPBELL MD CM:PNBISHOP [phone] SEBASTIAN ASCENCIO MD 12/05/181958 interface
--- NOTE | ~2018-12-03 | CON ---
[place], [place] REPORT OF CONSULTATION NAME: DONNA MERAZ [facility] #: [id number] UNIT #: [id number] ROOM: 532 DOCTOR: SEBASTIAN SKELTON MD BIRTHDATE: [birth year] DOS: 12/04/2018 PULMONARY CONSULTATION, EVALUATION AND MANAGEMENT CONSULTATION REQUESTED BY: The hospitalist services. REASON FOR CONSULTATION: To assess the patient's ongoing acute respiratory symptom with exacerbation of COPD. HISTORY OF PRESENT ILLNESS: This is a 58-year-old female patient who has been admitted to the hospital as she has been reported with increased respiratory symptom ongoing for 3 days with excessive chest congestion. The patient has been noted only scant amount of sputum expectoration at this time. The sputum expectoration noted yellowish to greenish in color at times. There were no symptoms of hemoptysis. Shortness of breath was noted significantly increased with expiratory wheezing. She has been using her respiratory medication and also stating use of nebulizer medication without good relief of the symptoms. Because of worsening respiratory symptoms, she came into the Emergency Room and assessed in the Emergency Room on 12/03/2018 and admitted to the hospital for further care. The patient stated only minimal improvement reported since hospitalization and current medical management, which has been provided. REVIEW OF SYSTEMS: CONSTITUTIONAL SYMPTOMS: Fatigue and tiredness noted without any symptoms of fever or chills. EYES: Denies any burning, redness or discharge. EARS, NOSE, THROAT SYMPTOMS: Denies sore throat, hoarseness, otalgia, postnasal drainage or epistaxis. CARDIOVASCULAR SYSTEM: Denies anginal pain, edema, or pain of the lower extremities. GASTROINTESTINAL SYMPTOMS: Denies dysphagia, nausea, vomiting, diarrhea, abdominal pain, hematemesis, melena, or hematochezia. SKIN: Denies any abnormal lesions or rashes. CENTRAL NERVOUS SYSTEM: The patient denies dizziness, headache, diplopia, or syncopal episodes. Remaining systems were reviewed with the patient, they were noted all negative. PAST MEDICAL HISTORY: 1. Known with history of COPD. 2. Essential hypertension. 3. Seizure disorder. 4. Bipolar disorder. 5. Gastroesophageal reflux. 6. Past history of gastrointestinal bleeding. 7. Past CVA history without any residual neurologic deficit. SOCIAL HISTORY: The patient is . She lives at home. Denies history of alcohol use or illicit drug use. Tobacco use was noted since teens, 1 pack of cigarettes per day. Stated not smoking cigarettes for the past 3 months. [place], [place] REPORT OF CONSULTATION NAME: DONNA MERAZ UNIT #: [id number] ROOM: 532 DOCTOR: SHANNAN ASCENCIO MD,SEBASTIAN BIRTHDATE: [birth year] Denies history of alcohol use or any illicit drugs. The patient has been known with past history of alcohol use, which has been discontinued about 3 years ago as well. PAST SURGICAL HISTORY: 1. . 2. Teeth extraction. FAMILY HISTORY: The patient's father of complications related to diabetes and heart problem at 60-year-old. Mother at 60-year-old related to metastatic breast cancer. MEDICATIONS: The current medications, which were administered, used by the patient on admission as use of ProAir HFA, aspirin, DuoNeb with the nebulizer, omeprazole, and oxygen supplementation 4 liters nasal cannula at this time. Current medications, which were actively administered on this hospitalization were noted as Solu-Medrol, aspirin, Lovenox, DuoNeb, Protonix, sodium chloride intravenously 100 mL an hour, Levaquin, temazepam, and some other p.r.n. meds. DRUG ALLERGIES: NOTED: 1. PENICILLINS, CAUSING HIVES. 2. VICODIN, CAUSING HIVES. 3. IBUPROFEN WITH THE GI BLEEDING HISTORY. PHYSICAL EXAMINATION: GENERAL: This is a 58-year-old female patient currently sitting on the bed. Height of 5 feet, weight of 130, BMI 25 recorded on admission by the nursing staff. VITAL SIGNS: Normal temperature, respiratory rate of 20-16, heart rate 89-104, blood pressure 136/75-118/86. Pulse oxygen saturation on 4 liters nasal cannula 96% saturation at rest. HEENT: Head was atraumatic. Eyes, nonicterus. NECK: Supple. CARDIOVASCULAR SYSTEM: S1, S2 is audible. LUNGS: The patient was noted with diffuse moderate severe expiratory wheezing bilaterally. There were no crackles. ABDOMEN: Soft, nontender. Bowel sounds present. EXTREMITIES: Noted without edema, clubbing, or cyanosis. MUSCULOSKELETAL: Without any acute deformity. VISIBLE good SKIN: No lesions or rashes. CENTRAL NERVOUS SYSTEM: Noted intact. LABORATORY DATA: The patient's CBC yesterday on admission was noted as normal. CBC for this patient, WBC count 8000 with eosinophils 1.5%. The PT, PTT noted as normal. CMP that was done on 12/03/2018, normal BUN and creatinine. Sodium 133, potassium 3.4. PT/INR was noted normal this morning. CMP of the patient this morning; glucose 172, BUN and creatinine normal. Albumin 3.0. One view chest x-ray that was done yesterday reviewed from the PACS images were noted with changes of hyperinflation, COPD without any acute visible pulmonary [place], [place] REPORT OF CONSULTATION NAME: DONNA MERAZ UNIT #: [id number] ROOM: 532 DOCTOR: SEBASTIAN SKELTON MD BIRTHDATE: [birth year] infiltration or other abnormalities. IMPRESSION: 1. The patient will be currently admitted to the hospital noted with acute exacerbation of chronic obstructive pulmonary disease with acute bronchitis. 2. History of nicotine use, previously with recent tobacco cessation. 3. Hypoglycemia resulting from the use of corticosteroids as well. PLAN OF MANAGEMENT: Sputum for Gram stain and culture. Bronchodilators will be changed to albuterol sulfate for DuoNeb because of exacerbation of COPD. Dose of Solu-Medrol will be also changed for the patient and made it 40 mg q.8 hours. Other therapy, plan of management and plan of care changes will be made based on progression of the illness. No change in antibiotic will be necessary. Other plan of management, care plan and treatment. Supportive care and other therapies. Thanks for allowing me to participate in the care of this patient. SEBASTIAN CAMPBELL MD CM:CONSTR:REPORT OF CONSULTATION 1126 12/04/18 6839 interface
--- NOTE | ~2018-12-03 | EKG ---
[place], [place] ELECTROCARDIOGRAM REPORT NAME: DONNA MERAZ UNIT #: [id number] ROOM: 532 DOCTOR: CLARK DRAFT REPORT BIRTHDATE: [birth year] [facility] Test Date: 2018-12-03 Test Time: 21:38:15 Pat Name: DONNA MERAZ Department: Room: 532 Gender: F [employer] Operator: Melvina Wong : 1960 Requested By: GABBY HARRIS Order Number: [id number] Reading MD: Ivanna Barillas Measurements Intervals [place] Rate: 95 P: -22 WI: 170 QRS: 141 QRSD: 80 T: 47 QT: 357 QTc: 449 Interpretive Statements Sinus rhythm Left posterior fascicular block Abnormal R-wave progression, late transition Compared to ECG 05/10/2018 10:31:44 Left posterior fascicular block now present Myocardial infarct finding no longer present Electronically Signed On 12-04-2018 10:14:55 PDT by Ivanna Barillas CM:EKGRPT:ELECTROCARDIOGRAM REPORT [id number] GABBY RANGEL DRAFT REPORT GABBY HARRIS DO
--- NOTE | ~2018-12-03 | PR ---
[place], [place] PROGRESS NOTE [id number] UN[facility] #: [id number] ROOM: 532 DOCTOR: SHANNAN ASCENCIO MD,SEBASTIAN BIRTHDATE: [birth year] DOS: 12/06/2018 SUBJECTIVE: The patient was noted comfortable at this time, resting on the bed this morning of assessment. Shortness of breath, coughing, wheezing all resolving gradually, but resolution still noted incomplete. Denies symptoms of chest pain. . OBJECTIVE: VITAL SIGNS: Normal temperature, respiratory rate 18, heart rate 96, blood pressure 128/62. Pulse oxygen saturation on 4 liters nasal cannula, 100% on 2 liters nasal cannula at rest was 99% saturation. HEENT: Examination shows head was atraumatic. Eyes nonicterus. NECK: Supple. CARDIOVASCULAR: S1, S2 audible. LUNGS: The patient was noted with mild expiratory wheezing with continued improvement and reduction in the wheezing was noted in the last 24 hours. ABDOMEN: Soft, nontender. Bowel sounds present. EXTREMITIES: No acute change. IMPRESSION: Progressive gradual resolution noted for acute exacerbation of chronic obstructive pulmonary disease, acute tracheobronchitis, history of chronic hypoxic respiratory failure using oxygen supplementation 4 liter nasal cannula. Recent tobacco cessation. PLAN OF TREATMENT: No changes in plan of care at this time, the patient will be discharged on tapering dose of prednisone, antibiotics and other medications. Outpatient followup suggested post-discharge. SEBASTIAN CAMPBELL MD CM:PNTRANS [phone] SEBASTIAN ASCENCIO MD 12/06/182011 interface
[~2018-12-03 21:33] MED LIST changes: +DOXYCYCLINE100 M3 PO; +Ipratropium Brom3 ML NEB; +NEBULIZER; +NICODERM CQ1 EAC2 T; +OXYGEN NAS; +VITAMIN D32000 UNI1 PO; +ZITHROMAX250 MG PO
[2018-12-03 21:42] VITALS: BP 118/86
[2018-12-03 22:29] LABS: BASO # 0.1 10*3/uL (0.0-0.1); BASO % 0.6 % (0.0-1.0); EOS # 0.1 10*3/uL (0.0-0.4); EOS % 1.5 % (1.0-4.0); HEMATOCRIT 42.7 % (37.0-47.0); HEMOGLOBIN 14.3 g/dl (12.0-16.0); LYMPH # 3.1 10*3/uL (1.3-4.4); LYMPH % 38.6 % (27.0-41.0); MEAN CELL VOLUME 95.7 fl (81.0-99.0); MEAN CORPUSCULAR HGB 32.1 pg (27.0-31.0); MEAN CORPUSCULAR HGB CONC 33.5 g/dl (33.0-37.0); MEAN PLATELET VOLUME 10.2 fl (9.6-12.3); MONO # 0.6 10*3/uL (0.1-1.0); MONO % 6.9 % (3.0-9.0); NEUT # 4.2 10*3/uL (2.3-7.9); NEUT % 52.2 % (47.0-73.0); PLATELET COUNT AUTOMATED 240 10*3/uL (130-400); RED BLOOD COUNT 4.46 10*6/uL (4.10-5.10); RED CELL DISTRI WIDTH 14.8 % (0-14.5)
[2018-12-03 22:40] LABS: ACT PARTIAL THROMBO TIME 25.6 SECONDS (20.0-32.1); INTERNATIONAL NORM RATIO 0.9 (2.0-3.5)
[2018-12-03 22:45] LABS: ALBUMIN 3.4 gm/dl (3.1-4.5); ALKALINE PHOSPHATASE 89 U/L (45-117); BUN 4 mg/dl (7-24); CHLORIDE 98 mmol/L (98-107); CREATININE 0.52 mg/dL (0.55-1.02); LIPASE 143 U/L (73-393); POTASSIUM 3.4 mmol/L (3.5-5.1); SGOT/AST 28 IU/L (3-35); SGPT/ALT 22 U/L (12-78); SODIUM 133 mmol/L (136-145); TOTAL PROTEIN 7.3 gm/dL (6.4-8.2)
[2018-12-03 22:48] LABS: TROPONIN I < 0.015 ng/ml (<0.045)
[2018-12-04 00:30] VITALS: BP 136/75
--- NOTE | 2018-12-04 00:30 | NUR ---
A 58, admitted to , under the services of MAN Melara DO with a diagnosis of COPD EXACERBATION. Chief complaint is SOB. Patient arrived via bed from ER. Monitor applied. Initial assessment completed. Vital signs taken and recorded. MAN MELARA DO notified of admission to the unit. Orders received. See assessment for past medical history, medications and allergies. Patient and/or family oriented to unit. [facility] visitation policy reviewed. Clothing/patient valuable form completed. LESVIA HERRERA
--- NOTE | 2018-12-04 01:00 | NUR ---
MED REC UPDATED WITH PATIENT.
--- NOTE | 2018-12-04 01:09 | NUR ---
NOTIFIED DR ALVARENGA OF PATIENTS LA 2.6
--- NOTE | 2018-12-04 06:19 | NUR ---
NOTIFIED DR CAMPBELL OF CONSULT.
[2018-12-04 06:34] LABS: HEMATOCRIT 40.9 % (37.0-47.0); HEMOGLOBIN 13.4 g/dl (12.0-16.0); MEAN CELL VOLUME 96.7 fl (81.0-99.0); MEAN CORPUSCULAR HGB 31.7 pg (27.0-31.0); MEAN CORPUSCULAR HGB CONC 32.8 g/dl (33.0-37.0); MEAN PLATELET VOLUME 10.5 fl (9.6-12.3); PLATELET COUNT AUTOMATED 182 10*3/uL (130-400); RED BLOOD COUNT 4.23 10*6/uL (4.10-5.10); RED CELL DISTRI WIDTH 14.8 % (0-14.5); WHITE BLOOD COUNT 2.8 10*3/uL (4.8-10.8)
[2018-12-04 07:04] LABS: CHLORIDE 106 mmol/L (98-107); POTASSIUM 3.7 mmol/L (3.5-5.1); SODIUM 139 mmol/L (136-145)
[2018-12-04 07:13] LABS: ALKALINE PHOSPHATASE 77 U/L (45-117); BUN 3 mg/dl (7-24); CHOLESTEROL 177 mg/dL (<200); CREATININE 0.49 mg/dL (0.55-1.02); HDL CHOLESTEROL 103 mg/dl (40-60); LDL CHOLESTEROL 67 mg/dL (9-159); PHOSPHOROUS 2.9 mg/dL (2.5-4.9); SGOT/AST 17 IU/L (3-35); SGPT/ALT 21 U/L (12-78); THYROID STIM HORMONE (HS) 0.546 uIU/ml (0.358-4.75); TOTAL PROTEIN 6.5 gm/dL (6.4-8.2); TRIGLYCERIDES 37 mg/dl (<150); VLDL CHOLESTEROL 7 mg/dL (6-40)
[2018-12-04 07:50] LABS: VITAMIN D, 25-HYDROXY 25.6 ng/mL (30-100)
[2018-12-04 07:57] LABS: BASOPHILS 1 % (0-1); PLATELET SUFFICIENCY NORMAL (NORMAL); TOTAL CELLS COUNTED 100 #CELLS
--- NOTE | 2018-12-04 09:00 | NUR ---
Pararescue Manager in to talk to patient. Patient states lives at home with her sister. There are 13 steps in the home. Physician: YOGESH [facility]acy: [facility] Home health services: none Patient's level of ADLs: INDEPENDENT Patient has working utilities: yes DME: O2 @ 4L nc, portable O2 tanks, nebulizer, O2 supplier [facility] Follow-up physician's appointment after d/c: will be made by the hospitalist nurse director upon discharge Does patient want to access PORTAL?: no Discharge plan discussed with patient. She lives at home with her sister. She is independent in her ADLs and ambulation. Discussed home health care services and she denies any home needs at this time. When medically stable she will be discharged to home. Taxi will transport on discharge. SHELBY COVARRUBIAS
[2018-12-04 12:00] VITALS: BP 121/68
[2018-12-04 16:00] VITALS: BP 115/53
[2018-12-04 20:00] VITALS: BP 117/54
[2018-12-05] VITALS: BP 136/60
[2018-12-05 06:24] LABS: HEMATOCRIT 38.5 % (37.0-47.0); HEMOGLOBIN 12.6 g/dl (12.0-16.0); MEAN CELL VOLUME 98.5 fl (81.0-99.0); MEAN CORPUSCULAR HGB 32.2 pg (27.0-31.0); MEAN CORPUSCULAR HGB CONC 32.7 g/dl (33.0-37.0); MEAN PLATELET VOLUME 10.9 fl (9.6-12.3); PLATELET COUNT AUTOMATED 200 10*3/uL (130-400); RED BLOOD COUNT 3.91 10*6/uL (4.10-5.10); RED CELL DISTRI WIDTH 15.2 % (0-14.5); WHITE BLOOD COUNT 14.7 10*3/uL (4.8-10.8)
[2018-12-05 06:47] LABS: BUN 5 mg/dl (7-24); CHLORIDE 104 mmol/L (98-107); CREATININE 0.49 mg/dL (0.55-1.02); POTASSIUM 3.5 mmol/L (3.5-5.1); SODIUM 139 mmol/L (136-145)
[2018-12-05 08:00] VITALS: BP 124/68
[2018-12-05 08:12] LABS: PLATELET SUFFICIENCY NORMAL (NORMAL); TOTAL CELLS COUNTED 100 #CELLS
[2018-12-05 12:00] VITALS: BP 120/54
[2018-12-05 16:00] VITALS: BP 125/71
[2018-12-05 20:00] VITALS: BP 123/57
[2018-12-06] VITALS: BP 141/87
[2018-12-06 08:00] VITALS: BP 143/74
--- NOTE | 2018-12-06 08:00 | NUR ---
ASSESSED FOR HOME O2 FOLLOWS: SAT 100% ON 4L/M O2 VIA NC AT REST HR 87 BP 143/74 SAT 87% RA AT REST SAT 88% ON 1L/M O2 VIA NC AT REST SAT 94-96% ON 2L/M O2 VIA NC AT REST SAT 87% ON 2L/M O2 VIA NC DURING AMBULATION SAT 87-88% ON 3L/M O2 VIA NC DURING AMBULATION SAT 90-94% ON 4L/M O2 VIA NC DURING AMBULATION SAT 96% ON 2L/M O2 VIA NC DURING RECOVERY, HR 82 BP 127/65 (PT NEEDING 2L/M O2 AT REST AND 4L/M O2 DURING AMBULATION) PT HAS O2 WITH [employer]. RN NOTIFIED ABOUT ASSESSMENT.
[2018-12-06] MEDS ORDERED: LEVAQUIN750 M1 PO (10:28)
[2018-12-06] MEDS ORDERED: PREDNISONE10 MG PO (10:28)
[2018-12-06 12:00] VITALS: BP 128/62
--- NOTE | 2018-12-06 13:47 | NUR ---
Discharge instructions reviewed with patient/family. Patient receptive and verbalizes understanding. Follow-up care arranged. Written instructions given to patient/family. AGUSTIN SLAUGHTER.
== END 2018-12-06 13:47 | disposition home or self-care (01) | DRG 871 ==
LOC: ED 21:33 → 5E 23:07 → EDHOLD 23:07 → 5E 23:59
PROVIDERS: Student in an Organized Health Care Education/Training Program; ADMIT Family Medicine
DX: A41.9 Sepsis, unspecified organism (principal); J18.9 Pneumonia, unspecified organism; J44.1 Chronic obstructive pulmonary disease with (acute) exacerbation; E44.0 Moderate protein-calorie malnutrition; J96.11 Chronic respiratory failure with hypoxia; J44.0 Chronic obstructive pulmonary disease with (acute) lower respiratory infection; E87.6 Hypokalemia; G40.909 Epilepsy, unspecified, not intractable, without status epilepticus; R65.20 Severe sepsis without septic shock; R73.9 Hyperglycemia, unspecified; J20.9 Acute bronchitis, unspecified; F31.70 Bipolar disorder, currently in remission, most recent episode unspecified; K21.9 Gastro-esophageal reflux disease without esophagitis; E55.9 Vitamin D deficiency, unspecified; D72.819 Decreased white blood cell count, unspecified; T38.0X5A Adverse effect of glucocorticoids and synthetic analogues, initial encounter; Y92.89 Other specified places as the place of occurrence of the external cause; Z88.0 Allergy status to penicillin; Z88.6 Allergy status to analgesic agent; Z86.73 Personal history of transient ischemic attack (TIA), and cerebral infarction without residual deficits; I25.2 Old myocardial infarction; Z87.01 Personal history of pneumonia (recurrent); Z98.891 History of uterine scar from previous surgery; Z87.891 Personal history of nicotine dependence; Z82.49 Family history of ischemic heart disease and other diseases of the circulatory system; Z83.3 Family history of diabetes mellitus; Z80.3 Family history of malignant neoplasm of breast; Z79.82 Long term (current) use of aspirin; Z68.25 Body mass index [BMI] 25.0-25.9, adult

== ENCOUNTER 2019-03-01 15:29 | Emergency (ER) | payer OTHER ==
[~2019-03-01] VITALS: Ht 149.8 cm; Wt 57.6 kg
[2019-03-01 17:08] LABS: BASO # 0.1 10*3/uL (0.0-0.1); BASO % 0.7 % (0.0-1.0); EOS # 0.2 10*3/uL (0.0-0.4); EOS % 3.2 % (1.0-4.0); HEMATOCRIT 45.5 % (37.0-47.0); LYMPH % 26.4 % (27.0-41.0); MEAN CELL VOLUME 95.8 fl (81.0-99.0); MEAN CORPUSCULAR HGB 31.6 pg (27.0-31.0); MONO # 0.7 10*3/uL (0.1-1.0); MONO % 9.8 % (3.0-9.0); NEUT # 4.4 10*3/uL (2.3-7.9); NEUT % 59.6 % (47.0-73.0); PLATELET COUNT AUTOMATED 189 10*3/uL (130-400); RED BLOOD COUNT 4.75 10*6/uL (4.10-5.10); RED CELL DISTRI WIDTH 14.1 % (0-14.5); WHITE BLOOD COUNT 7.5 10*3/uL (4.8-10.8)
[2019-03-01 17:20] LABS: ACT PARTIAL THROMBO TIME 27.3 SECONDS (20.0-32.1); INTERNATIONAL NORM RATIO 0.9 (2.0-3.5)
[2019-03-01 17:25] LABS: ALBUMIN 3.5 gm/dl (3.1-4.5); ALKALINE PHOSPHATASE 85 U/L (45-117); BUN 4 mg/dl (7-24); CHLORIDE 98 mmol/L (98-107); CREATININE 0.54 mg/dL (0.55-1.02); SGOT/AST 18 IU/L (3-35); SGPT/ALT 18 U/L (12-78); SODIUM 132 mmol/L (136-145); TOTAL PROTEIN 7.2 gm/dL (6.4-8.2)
[2019-03-01] MEDS ORDERED: SEPTDS PO (17:35)
== END 2019-03-01 17:49 | disposition home or self-care (01) ==
LOC: ED 15:29
PROVIDERS: Physician Assistant
DX: T63.301A Toxic effect of unspecified spider venom, accidental (unintentional), initial encounter (principal); R23.3 Spontaneous ecchymoses; Z98.890 Other specified postprocedural states; Z79.82 Long term (current) use of aspirin; Z88.0 Allergy status to penicillin; Z88.5 Allergy status to narcotic agent; Z88.6 Allergy status to analgesic agent; Y92.89 Other specified places as the place of occurrence of the external cause

== ENCOUNTER 2019-09-21 16:10 | Inpatient (IN) | payer OTHER ==
[~2019-09-21] VITALS: Ht 152.4 cm; Wt 62.3 kg
[~2019-09-21 16:10] MED LIST changes: +SEPTDS PO
[2019-09-21 16:32] LABS: BASO # 0.1 10*3/uL (0.0-0.1); BASO % 0.5 % (0.0-1.0); EOS % 0.2 % (1.0-4.0); HEMATOCRIT 43.9 % (37.0-47.0); LYMPH # 2.8 10*3/uL (1.3-4.4); LYMPH % 25.6 % (27.0-41.0); MEAN CELL VOLUME 91.1 fl (81.0-99.0); MEAN CORPUSCULAR HGB 30.1 pg (27.0-31.0); MONO # 0.5 10*3/uL (0.1-1.0); MONO % 4.5 % (3.0-9.0); NEUT # 7.6 10*3/uL (2.3-7.9); PLATELET COUNT AUTOMATED 332 10*3/uL (130-400); RED BLOOD COUNT 4.82 10*6/uL (4.10-5.10); RED CELL DISTRI WIDTH 14.2 % (0-14.5)
[2019-09-21 16:42] LABS: ACT PARTIAL THROMBO TIME 27.9 SECONDS (20.0-32.1); INTERNATIONAL NORM RATIO 0.9 (2.0-3.5)
[2019-09-21 16:48] LABS: ALBUMIN 3.3 gm/dl (3.1-4.5); ALKALINE PHOSPHATASE 114 U/L (45-117); BUN 3 mg/dl (7-24); CHLORIDE 99 mmol/L (98-107); POTASSIUM 4.1 mmol/L (3.5-5.1); SGOT/AST 23 IU/L (3-35); SGPT/ALT 20 U/L (12-78); SODIUM 136 mmol/L (136-145); TOTAL PROTEIN 7.4 gm/dL (6.4-8.2)
[2019-09-21 16:49] LABS: TROPONIN I < 0.015 ng/ml (<0.045)
[2019-09-21 17:14] VITALS: BP 110/53
[2019-09-21 17:45] VITALS: BP 121/72
[2019-09-21 19:39] VITALS: BP 123/72
[2019-09-21 20:10] VITALS: BP 142/84
[2019-09-22] VITALS: BP 109/62
[2019-09-22 06:10] LABS: ALBUMIN 3.1 gm/dl (3.1-4.5); ALKALINE PHOSPHATASE 115 U/L (45-117); BUN 3 mg/dl (7-24); CHLORIDE 100 mmol/L (98-107); CREATININE 0.35 mg/dL (0.55-1.02); POTASSIUM 3.8 mmol/L (3.5-5.1); SGOT/AST 15 IU/L (3-35); SGPT/ALT 19 U/L (12-78); SODIUM 138 mmol/L (136-145)
[2019-09-22 06:21] LABS: HEMATOCRIT 41.9 % (37.0-47.0); MEAN CELL VOLUME 91.9 fl (81.0-99.0); MEAN CORPUSCULAR HGB 30.5 pg (27.0-31.0); MEAN CORPUSCULAR HGB CONC 33.2 g/dl (33.0-37.0); MEAN PLATELET VOLUME 10.4 fl (9.6-12.3); PLATELET COUNT AUTOMATED 296 10*3/uL (130-400); RED BLOOD COUNT 4.56 10*6/uL (4.10-5.10); RED CELL DISTRI WIDTH 14.3 % (0-14.5); WHITE BLOOD COUNT 6.3 10*3/uL (4.8-10.8)
[2019-09-22 07:04] LABS: BURR CELLS FEW; PLATELET SUFFICIENCY NORMAL (NORMAL); TOTAL CELLS COUNTED 100 #CELLS
[2019-09-22 08:00] VITALS: BP 120/84
[2019-09-22 12:00] VITALS: BP 148/74
[2019-09-22 16:00] VITALS: BP 139/66
[2019-09-22 20:00] VITALS: BP 131/62
[2019-09-23] VITALS: BP 139/67
[2019-09-23 06:27] LABS: BUN 10 mg/dl (7-24); CHLORIDE 98 mmol/L (98-107); CREATININE 0.53 mg/dL (0.55-1.02); POTASSIUM 3.9 mmol/L (3.5-5.1); SODIUM 137 mmol/L (136-145)
[2019-09-23 06:30] LABS: HEMATOCRIT 41.4 % (37.0-47.0); MEAN CELL VOLUME 92.6 fl (81.0-99.0); MEAN CORPUSCULAR HGB 30.4 pg (27.0-31.0); MEAN CORPUSCULAR HGB CONC 32.9 g/dl (33.0-37.0); MEAN PLATELET VOLUME 10.7 fl (9.6-12.3); PLATELET COUNT AUTOMATED 268 10*3/uL (130-400); RED BLOOD COUNT 4.47 10*6/uL (4.10-5.10); RED CELL DISTRI WIDTH 14.3 % (0-14.5); WHITE BLOOD COUNT 10.8 10*3/uL (4.8-10.8)
[2019-09-23 07:20] LABS: PLATELET SUFFICIENCY NORMAL (NORMAL); TARGET CELLS FEW; TOTAL CELLS COUNTED 100 #CELLS
[2019-09-23 08:00] VITALS: BP 132/82; BP 141/86
[2019-09-23 12:00] VITALS: BP 130/72
[2019-09-23 16:00] VITALS: BP 134/67; BP 134/70
[2019-09-23 20:00] VITALS: BP 145/74
[2019-09-24] VITALS: BP 148/71
[2019-09-24 08:00] VITALS: BP 154/82
[2019-09-24] MEDS ORDERED: PREDNISONE10 MG PO (11:41)
[2019-09-24] MEDS ORDERED: LEVAQUIN500 M2 PO (11:41)
[2019-09-24] MEDS ORDERED: MUCUS RELIEF600 MG PO (11:41)
== END 2019-09-24 12:19 | disposition home or self-care (01) | DRG 720 ==
LOC: ED 16:10 → 4E 19:01 → EDHOLD 19:01 → 4E 19:33
PROVIDERS: Emergency Medicine; Student in an Organized Health Care Education/Training Program; ADMIT Internal Medicine
DX: A41.9 Sepsis, unspecified organism (principal); J18.9 Pneumonia, unspecified organism; J96.11 Chronic respiratory failure with hypoxia; G40.909 Epilepsy, unspecified, not intractable, without status epilepticus; F31.9 Bipolar disorder, unspecified; J44.0 Chronic obstructive pulmonary disease with (acute) lower respiratory infection; K21.9 Gastro-esophageal reflux disease without esophagitis; E55.9 Vitamin D deficiency, unspecified; R73.03 Prediabetes; E44.0 Moderate protein-calorie malnutrition; R10.9 Unspecified abdominal pain; R65.20 Severe sepsis without septic shock; J44.1 Chronic obstructive pulmonary disease with (acute) exacerbation; J20.9 Acute bronchitis, unspecified; F17.210 Nicotine dependence, cigarettes, uncomplicated; Z86.73 Personal history of transient ischemic attack (TIA), and cerebral infarction without residual deficits; Z83.3 Family history of diabetes mellitus; Z82.49 Family history of ischemic heart disease and other diseases of the circulatory system; Z80.8 Family history of malignant neoplasm of other organs or systems; Z88.8 Allergy status to other drugs, medicaments and biological substances; Z88.0 Allergy status to penicillin; Z79.82 Long term (current) use of aspirin; Z79.899 Other long term (current) drug therapy; Z99.81 Dependence on supplemental oxygen; Z68.26 Body mass index [BMI] 26.0-26.9, adult

== ENCOUNTER → 2020-02-02 | Outpatient (CLI) | payer OTHER ==
[~2020-02-02] MED LIST changes: +LEVAQUIN500 M2 PO; +MUCUS RELIEF600 MG PO
== END | disposition home or self-care (01) ==
LOC: COVID19 00:48
PROVIDERS: ATTEND Internal Medicine Cardiovascular Disease
DX: Z01.812 Encounter for preprocedural laboratory examination (principal); Z20.828 Contact with and (suspected) exposure to other viral communicable diseases

== ENCOUNTER → 2020-02-07 | Day surgery (SDC) | payer OTHER ==
[~2020-02-07] VITALS: Ht 154.9 cm; Wt 61.7 kg
[2020-02-07 08:00] VITALS: BP 166/91
[2020-02-07 10:26] VITALS: BP 148/78
[2020-02-07 10:41] VITALS: BP 156/79
[2020-02-07 10:56] VITALS: BP 153/77
== END | disposition home or self-care (01) ==
LOC: SDC 02-03 08:00
PROVIDERS: ATTEND Internal Medicine Cardiovascular Disease
DX: I63.9 Cerebral infarction, unspecified (principal); J44.9 Chronic obstructive pulmonary disease, unspecified; J96.10 Chronic respiratory failure, unspecified whether with hypoxia or hypercapnia; K21.9 Gastro-esophageal reflux disease without esophagitis; K92.2 Gastrointestinal hemorrhage, unspecified; A41.9 Sepsis, unspecified organism; J18.9 Pneumonia, unspecified organism; E55.9 Vitamin D deficiency, unspecified; G40.909 Epilepsy, unspecified, not intractable, without status epilepticus; I25.2 Old myocardial infarction; F31.9 Bipolar disorder, unspecified; Z88.0 Allergy status to penicillin; Z88.8 Allergy status to other drugs, medicaments and biological substances; Z98.890 Other specified postprocedural states; Z79.899 Other long term (current) drug therapy

== ENCOUNTER 2020-08-03 11:21 | Inpatient (IN) | payer OTHER ==
[~2020-08-03] VITALS: Ht 152.4 cm; Wt 74.4 kg
[2020-08-03 11:25] VITALS: BP 174/90
[2020-08-03 12:02] LABS: BASO # 0.1 10*3/uL (0.0-0.1); BASO % 1.1 % (0.0-1.0); EOS # 0.1 10*3/uL (0.0-0.4); EOS % 1.2 % (1.0-4.0); HEMATOCRIT 45.8 % (37.0-47.0); LYMPH # 1.2 10*3/uL (1.3-4.4); LYMPH % 18.1 % (27.0-41.0); MEAN CELL VOLUME 91.6 fl (81.0-99.0); MEAN CORPUSCULAR HGB 29.4 pg (27.0-31.0); MEAN CORPUSCULAR HGB CONC 32.1 g/dl (33.0-37.0); MONO # 0.6 10*3/uL (0.1-1.0); MONO % 9.5 % (3.0-9.0); NEUT # 4.5 10*3/uL (2.3-7.9); NEUT % 69.9 % (47.0-73.0); PLATELET COUNT AUTOMATED 250 10*3/uL (130-400); RED CELL DISTRI WIDTH 15.6 % (0-14.5); WHITE BLOOD COUNT 6.5 10*3/uL (4.8-10.8)
[2020-08-03 12:12] LABS: ACT PARTIAL THROMBO TIME 23.1 SECONDS (20.0-32.1)
[2020-08-03 12:18] LABS: ALBUMIN 3.6 gm/dl (3.1-4.5); ALKALINE PHOSPHATASE 94 U/L (45-117); BUN 5 mg/dl (7-24); CHLORIDE 102 mmol/L (98-107); CREATININE 0.59 mg/dL (0.55-1.02); LIPASE 71 U/L (73-393); POTASSIUM 4.1 mmol/L (3.5-5.1); SGOT/AST 30 IU/L (3-35); SGPT/ALT 29 U/L (12-78); SODIUM 135 mmol/L (136-145); TOTAL PROTEIN 7.3 gm/dL (6.4-8.2)
[2020-08-03 13:05] VITALS: BP 177/86
[2020-08-03 14:09] VITALS: BP 156/100
[2020-08-03 14:45] VITALS: BP 171/86
[2020-08-03 15:26] LABS: BILIRUBIN Negative (Negative); BLOOD Negative (Negative); CLARITY Clear (Clear); COLOR Yellow (Yellow); GLUCOSE Negative (Negative); KETONE 1+ (Negative); LEUKO ESTERASE Negative (Negative); NITRITE Negative (Negative); PH 7.5 (4.5-8.0); SPECIFIC GRAVITY 1.015 (1.001-1.030)
[2020-08-03 15:42] LABS: BACTERIA 1+; EPITHELIAL CELLS 21-30
[2020-08-03 20:00] VITALS: BP 143/66
[2020-08-04] VITALS: BP 107/61
[2020-08-04 05:45] LABS: ALBUMIN 3.1 gm/dl (3.1-4.5); ALKALINE PHOSPHATASE 82 U/L (45-117); BUN 7 mg/dl (7-24); CHLORIDE 100 mmol/L (98-107); CREATININE 0.44 mg/dL (0.55-1.02); POTASSIUM 3.9 mmol/L (3.5-5.1); SGOT/AST 16 IU/L (3-35); SGPT/ALT 22 U/L (12-78); SODIUM 136 mmol/L (136-145); TOTAL PROTEIN 6.5 gm/dL (6.4-8.2)
[2020-08-04 06:09] LABS: HEMATOCRIT 43.2 % (37.0-47.0); LYMPH # 0.5 10*3/uL (1.3-4.4); LYMPH % 12.9 % (27.0-41.0); MEAN CELL VOLUME 90.2 fl (81.0-99.0); MEAN CORPUSCULAR HGB 29.6 pg (27.0-31.0); MEAN CORPUSCULAR HGB CONC 32.9 g/dl (33.0-37.0); MEAN PLATELET VOLUME 10.8 fl (9.6-12.3); MONO # 0.1 10*3/uL (0.1-1.0); MONO % 1.7 % (3.0-9.0); NEUT # 3.5 10*3/uL (2.3-7.9); NEUT % 85.2 % (47.0-73.0); PLATELET COUNT AUTOMATED 239 10*3/uL (130-400); RED BLOOD COUNT 4.79 10*6/uL (4.10-5.10); RED CELL DISTRI WIDTH 14.9 % (0-14.5); WHITE BLOOD COUNT 4.1 10*3/uL (4.8-10.8)
[2020-08-04 08:00] VITALS: BP 122/53
[2020-08-04 12:00] VITALS: BP 102/79
[2020-08-04] MEDS ORDERED: PREDNISONE10 MG PO ×2 (14:38)
[2020-08-04] MEDS ORDERED: LEVOFLOXACIN500 MG PO ×2 (14:38)
[2020-08-04] MEDS ORDERED: LOPRESSOR25 MG PO ×2 (14:38)
== END 2020-08-04 15:15 | disposition home or self-care (01) | DRG 140 ==
LOC: ED 11:21 → EDHOLD 13:45 → 4E 13:45 → EDHOLD 14:06 → 4E 14:11
PROVIDERS: Emergency Medicine; Internal Medicine; ADMIT Internal Medicine; ATTEND Internal Medicine
DX: J44.1 Chronic obstructive pulmonary disease with (acute) exacerbation (principal); I21.A1 Myocardial infarction type 2; J96.21 Acute and chronic respiratory failure with hypoxia; F31.9 Bipolar disorder, unspecified; R73.9 Hyperglycemia, unspecified; F17.210 Nicotine dependence, cigarettes, uncomplicated; G40.909 Epilepsy, unspecified, not intractable, without status epilepticus; K21.9 Gastro-esophageal reflux disease without esophagitis; Z88.0 Allergy status to penicillin; Z88.6 Allergy status to analgesic agent; Z98.891 History of uterine scar from previous surgery; Z90.710 Acquired absence of both cervix and uterus; Z83.3 Family history of diabetes mellitus; Z80.3 Family history of malignant neoplasm of breast; Z82.49 Family history of ischemic heart disease and other diseases of the circulatory system; Z86.73 Personal history of transient ischemic attack (TIA), and cerebral infarction without residual deficits; I25.2 Old myocardial infarction; Z79.82 Long term (current) use of aspirin; Z99.81 Dependence on supplemental oxygen; Z71.6 Tobacco abuse counseling; Z72.89 Other problems related to lifestyle

== ENCOUNTER 2020-08-27 14:28 | Inpatient (IN) | payer OTHER ==
[~2020-08-27] VITALS: Ht 142.2 cm; Wt 61.5 kg
[~2020-08-27 14:28] MED LIST changes: +LEVOFLOXACIN500 MG PO; +LOPRESSOR25 MG PO
[2020-08-27 14:44] VITALS: BP 147/77
[2020-08-27 14:54] VITALS: BP 147/77
[2020-08-27 15:10] LABS: HEMATOCRIT 44.8 % (37.0-47.0); MEAN CELL VOLUME 92.9 fl (81.0-99.0); MEAN CORPUSCULAR HGB 29.7 pg (27.0-31.0); MEAN CORPUSCULAR HGB CONC 31.9 g/dl (33.0-37.0); PLATELET COUNT AUTOMATED 272 10*3/uL (130-400); RED BLOOD COUNT 4.82 10*6/uL (4.10-5.10); RED CELL DISTRI WIDTH 14.7 % (0-14.5); WHITE BLOOD COUNT 16.1 10*3/uL (4.8-10.8)
[2020-08-27 15:27] LABS: ALBUMIN 2.3 gm/dl (3.1-4.5); ALKALINE PHOSPHATASE 100 U/L (45-117); BUN 8 mg/dl (7-24); CHLORIDE 90 mmol/L (98-107); CREATININE 0.48 mg/dL (0.55-1.02); POTASSIUM 3.3 mmol/L (3.5-5.1); SGOT/AST 46 IU/L (3-35); SGPT/ALT 53 U/L (12-78); SODIUM 131 mmol/L (136-145); TOTAL PROTEIN 7.3 gm/dL (6.4-8.2)
[2020-08-27 15:28] LABS: TROPONIN I < 0.015 ng/ml (<0.045)
[2020-08-27 15:28] LABS: ARTERIAL BLOOD GAS PH 7.415 (7.35-7.45); ARTERIAL BLOOD GAS PO2 55.3 (80-90)
[2020-08-27 15:36] LABS: ACT PARTIAL THROMBO TIME 26.1 SECONDS (20.0-32.1)
[2020-08-27 15:41] LABS: BASOPHILS 1 % (0-1); TOTAL CELLS COUNTED 100 #CELLS
[2020-08-27 15:42] LABS: PLATELET SUFFICIENCY NORMAL (NORMAL); TOXIC GRANULATION SLIGHT; VACUOLATION OF NEUTROPHILS SLIGHT
[2020-08-27 17:42] LABS: BILIRUBIN 2+ (Negative); BLOOD 3+ (Negative); CLARITY Turbid (Clear); COLOR Dark Yellow (Yellow); GLUCOSE Negative (Negative); KETONE 1+ (Negative); LEUKO ESTERASE 1+ (Negative); NITRITE Negative (Negative)
[2020-08-27 17:55] LABS: BACTERIA 3+; EPITHELIAL CELLS TNTC; MUCOUS TRACE
[2020-08-27 19:40] VITALS: BP 108/63
[2020-08-27 20:50] VITALS: BP 113/56
[2020-08-27 22:00] VITALS: BP 126/68
[2020-08-28] VITALS: BP 96/81
[2020-08-28 07:15] LABS: HEMATOCRIT 45.4 % (37.0-47.0); MEAN CELL VOLUME 94.2 fl (81.0-99.0); MEAN CORPUSCULAR HGB 29.3 pg (27.0-31.0); MEAN CORPUSCULAR HGB CONC 31.1 g/dl (33.0-37.0); MEAN PLATELET VOLUME 10.1 fl (9.6-12.3); PLATELET COUNT AUTOMATED 308 10*3/uL (130-400); RED BLOOD COUNT 4.82 10*6/uL (4.10-5.10); RED CELL DISTRI WIDTH 14.7 % (0-14.5); WHITE BLOOD COUNT 10.8 10*3/uL (4.8-10.8)
[2020-08-28 07:26] LABS: ACT PARTIAL THROMBO TIME 25.8 SECONDS (20.0-32.1)
[2020-08-28 07:33] LABS: ALBUMIN 2.3 gm/dl (3.1-4.5); ALKALINE PHOSPHATASE 102 U/L (45-117); BUN 10 mg/dl (7-24); CHLORIDE 90 mmol/L (98-107); CREATININE 0.48 mg/dL (0.55-1.02); SGOT/AST 52 IU/L (3-35); SGPT/ALT 55 U/L (12-78); SODIUM 128 mmol/L (136-145); TOTAL PROTEIN 7.2 gm/dL (6.4-8.2)
[2020-08-28 07:46] LABS: POTASSIUM 4.4 mmol/L (3.5-5.1)
[2020-08-28 08:00] VITALS: BP 106/56
[2020-08-28 08:34] LABS: TOTAL CELLS COUNTED 100 #CELLS; TOXIC GRANULATION SLIGHT
[2020-08-28 08:36] LABS: PLATELET SUFFICIENCY NORMAL (NORMAL)
[2020-08-28 12:00] VITALS: BP 105/60
[2020-08-28 16:00] VITALS: BP 123/69
[2020-08-28 20:00] VITALS: BP 126/68
[2020-08-29] VITALS: BP 108/76
[2020-08-29 06:24] LABS: HEMATOCRIT 42.1 % (37.0-47.0); MEAN CELL VOLUME 93.1 fl (81.0-99.0); MEAN CORPUSCULAR HGB 29.6 pg (27.0-31.0); MEAN CORPUSCULAR HGB CONC 31.8 g/dl (33.0-37.0); MEAN PLATELET VOLUME 9.9 fl (9.6-12.3); PLATELET COUNT AUTOMATED 307 10*3/uL (130-400); RED BLOOD COUNT 4.52 10*6/uL (4.10-5.10); RED CELL DISTRI WIDTH 14.1 % (0-14.5); WHITE BLOOD COUNT 12.7 10*3/uL (4.8-10.8)
[2020-08-29 06:44] LABS: BUN 11 mg/dl (7-24); CHLORIDE 88 mmol/L (98-107); SODIUM 130 mmol/L (136-145)
[2020-08-29 06:50] LABS: ALBUMIN 2.2 gm/dl (3.1-4.5); ALKALINE PHOSPHATASE 87 U/L (45-117); CREATININE 0.37 mg/dL (0.55-1.02); SGOT/AST 57 IU/L (3-35); SGPT/ALT 62 U/L (12-78); TOTAL PROTEIN 6.6 gm/dL (6.4-8.2)
[2020-08-29 07:11] LABS: ATYPICAL LYMPHS 1 % (0-0); PLATELET SUFFICIENCY NORMAL (NORMAL); TOTAL CELLS COUNTED 100 #CELLS; TOXIC GRANULATION SLIGHT; VACUOLATION OF NEUTROPHILS SLIGHT
[2020-08-29 07:12] LABS: POLYCHROMASIA SLIGHT
[2020-08-29 08:00] VITALS: BP 132/78
[2020-08-29 12:00] VITALS: BP 106/68
[2020-08-29 16:00] VITALS: BP 128/76
[2020-08-29 20:00] VITALS: BP 114/83
[2020-08-30] VITALS: BP 111/69
[2020-08-30 06:14] LABS: ALBUMIN 2.2 gm/dl (3.1-4.5); BUN 5 mg/dl (7-24); CHLORIDE 88 mmol/L (98-107); POTASSIUM 3.6 mmol/L (3.5-5.1); SGOT/AST 37 IU/L (3-35); SGPT/ALT 56 U/L (12-78); SODIUM 133 mmol/L (136-145)
[2020-08-30 06:17] LABS: ALKALINE PHOSPHATASE 90 U/L (45-117); CREATININE 0.31 mg/dL (0.55-1.02); TOTAL PROTEIN 6.3 gm/dL (6.4-8.2)
[2020-08-30 06:22] LABS: BASO % 0.2 % (0.0-1.0); EOS % 0.1 % (1.0-4.0); HEMATOCRIT 42.4 % (37.0-47.0); LYMPH # 1.4 10*3/uL (1.3-4.4); LYMPH % 15.5 % (27.0-41.0); MEAN CELL VOLUME 93.8 fl (81.0-99.0); MEAN CORPUSCULAR HGB 29.4 pg (27.0-31.0); MEAN CORPUSCULAR HGB CONC 31.4 g/dl (33.0-37.0); MEAN PLATELET VOLUME 9.7 fl (9.6-12.3); MONO # 0.9 10*3/uL (0.1-1.0); NEUT # 6.8 10*3/uL (2.3-7.9); NEUT % 73.2 % (47.0-73.0); PLATELET COUNT AUTOMATED 353 10*3/uL (130-400); RED BLOOD COUNT 4.52 10*6/uL (4.10-5.10); RED CELL DISTRI WIDTH 14.2 % (0-14.5); WHITE BLOOD COUNT 9.2 10*3/uL (4.8-10.8)
[2020-08-30 08:00] VITALS: BP 124/65
[2020-08-30] MEDS ORDERED: MUCUS RELIEF600 MG PO (08:45)
[2020-08-30] MEDS ORDERED: DOXYCYCLINE MO100 M1 PO (08:45)
[2020-08-30] MEDS ORDERED: PREDNISONE10 MG PO (08:45)
== END 2020-08-30 10:25 | disposition home or self-care (01) | DRG 720 ==
LOC: ED 14:28 → 4E 20:27 → EDHOLD 20:27 → 4E 20:34
PROVIDERS: Emergency Medicine; Hospitalist; Social Worker Clinical; ADMIT Internal Medicine; ATTEND Internal Medicine
DX: A41.9 Sepsis, unspecified organism (principal); J69.0 Pneumonitis due to inhalation of food and vomit; J96.21 Acute and chronic respiratory failure with hypoxia; E43 Unspecified severe protein-calorie malnutrition; Z20.822 Contact with and (suspected) exposure to COVID-19; G40.909 Epilepsy, unspecified, not intractable, without status epilepticus; K21.9 Gastro-esophageal reflux disease without esophagitis; E87.1 Hypo-osmolality and hyponatremia; E83.41 Hypermagnesemia; R73.9 Hyperglycemia, unspecified; Z68.30 Body mass index [BMI] 30.0-30.9, adult; Z90.710 Acquired absence of both cervix and uterus; Z83.3 Family history of diabetes mellitus; Z79.51 Long term (current) use of inhaled steroids; Z79.82 Long term (current) use of aspirin; Z79.899 Other long term (current) drug therapy; Z88.6 Allergy status to analgesic agent; Z88.0 Allergy status to penicillin; Z88.5 Allergy status to narcotic agent

== ENCOUNTER 2020-10-06 18:49 | Emergency (ER) | payer OTHER ==
[~2020-10-06 18:49] MED LIST changes: +DOXYCYCLINE MO100 M1 PO
[2020-10-06 19:14] LABS: BASO # 0.1 10*3/uL (0.0-0.1); BASO % 0.8 % (0.0-1.0); EOS # 0.1 10*3/uL (0.0-0.4); EOS % 0.7 % (1.0-4.0); HEMATOCRIT 48.6 % (37.0-47.0); LYMPH # 4.3 10*3/uL (1.3-4.4); LYMPH % 48.5 % (27.0-41.0); MEAN CELL VOLUME 95.3 fl (81.0-99.0); MEAN CORPUSCULAR HGB 30.2 pg (27.0-31.0); MEAN CORPUSCULAR HGB CONC 31.7 g/dl (33.0-37.0); MEAN PLATELET VOLUME 9.4 fl (9.6-12.3); MONO % 11.5 % (3.0-9.0); NEUT # 3.4 10*3/uL (2.3-7.9); NEUT % 38.3 % (47.0-73.0); PLATELET COUNT AUTOMATED 242 10*3/uL (130-400); RED CELL DISTRI WIDTH 20.8 % (0-14.5); WHITE BLOOD COUNT 8.9 10*3/uL (4.8-10.8)
[2020-10-06 19:30] LABS: ALBUMIN 4.1 gm/dl (3.1-4.5); ALKALINE PHOSPHATASE 141 U/L (45-117); BUN 3 mg/dl (7-24); CHLORIDE 93 mmol/L (98-107); CREATININE 0.62 mg/dL (0.55-1.02); POTASSIUM 3.6 mmol/L (3.5-5.1); SGOT/AST 29 IU/L (3-35); SGPT/ALT 27 U/L (12-78); SODIUM 132 mmol/L (136-145); TOTAL PROTEIN 8.1 gm/dL (6.4-8.2)
[2020-10-06 20:00] LABS: BILIRUBIN Negative (Negative); BLOOD 1+ (Negative); CLARITY Clear (Clear); COLOR Yellow (Yellow); GLUCOSE Negative (Negative); KETONE Trace (Negative); LEUKO ESTERASE Negative (Negative); NITRITE Negative (Negative); UROBILINOGEN 0.2 E.U./dl (0.0-1.0)
[2020-10-06 20:01] LABS: URINE AMPHETAMINES < 1000 (1000ng/ml); URINE BARBITURATES < 200 (200ng/ml); URINE BENZODIAZEPINES < 200 (200ng/ml); URINE CANNABINOIDS (THC) < 50 (50ng/ml); URINE COCAINE < 300 (300ng/ml); URINE METHADONE < 300 (300ng/ml); URINE OPIATES < 300 (300ng/ml)
[2020-10-06 20:07] LABS: URINE PHENCYCLIDINE < 25 (25ng/ml)
[2020-10-06 20:14] LABS: FINE GRANULAR CAST 0-2; MUCOUS 1+; WBC 0-2 wbc/hpf (0-5)
== END 2020-10-07 06:40 | disposition home or self-care (01) ==
LOC: ED 18:49
PROVIDERS: Internal Medicine
DX: F10.139 Alcohol abuse with withdrawal, unspecified (principal); R56.9 Unspecified convulsions; E87.8 Other disorders of electrolyte and fluid balance, not elsewhere classified; F17.210 Nicotine dependence, cigarettes, uncomplicated; Z88.0 Allergy status to penicillin; Z88.8 Allergy status to other drugs, medicaments and biological substances; Z88.6 Allergy status to analgesic agent; Z79.2 Long term (current) use of antibiotics; Z79.899 Other long term (current) drug therapy; Z79.82 Long term (current) use of aspirin; Z98.890 Other specified postprocedural states; Z90.711 Acquired absence of uterus with remaining cervical stump; Y90.1 Blood alcohol level of 20-39 mg/100 ml

== ENCOUNTER 2020-11-12 12:32 | Inpatient (IN) | payer OTHER ==
[~2020-11-12] VITALS: Ht 152.4 cm; Wt 62.2 kg
[2020-11-12] VITALS (10 sets, daily range): BP systolic 117–142; BP diastolic 69–79
[2020-11-12 13:03] LABS: BASO % 0.5 % (0.0-1.0); EOS % 0.2 % (1.0-4.0); HEMATOCRIT 47.9 % (37.0-47.0); LYMPH # 0.7 10*3/uL (1.3-4.4); LYMPH % 8.4 % (27.0-41.0); MEAN CELL VOLUME 97.4 fl (81.0-99.0); MEAN CORPUSCULAR HGB 31.7 pg (27.0-31.0); MEAN CORPUSCULAR HGB CONC 32.6 g/dl (33.0-37.0); MEAN PLATELET VOLUME 10.5 fl (9.6-12.3); MONO # 0.6 10*3/uL (0.1-1.0); MONO % 6.8 % (3.0-9.0); NEUT % 83.9 % (47.0-73.0); PLATELET COUNT AUTOMATED 205 10*3/uL (130-400); RED BLOOD COUNT 4.92 10*6/uL (4.10-5.10); RED CELL DISTRI WIDTH 16.6 % (0-14.5); WHITE BLOOD COUNT 8.4 10*3/uL (4.8-10.8)
[2020-11-12 13:15] LABS: ACT PARTIAL THROMBO TIME 23.3 SECONDS (20.0-32.1)
[2020-11-12 13:21] LABS: ALBUMIN 3.5 gm/dl (3.1-4.5); ALKALINE PHOSPHATASE 83 U/L (45-117); BUN 10 mg/dl (7-24); CHLORIDE 99 mmol/L (98-107); CPK 42 U/L (26-192); POTASSIUM 3.6 mmol/L (3.5-5.1); SGOT/AST 20 IU/L (3-35); SGPT/ALT 23 U/L (12-78); SODIUM 135 mmol/L (136-145)
[2020-11-12 13:23] LABS: ABG BASE EXCESS 1.7 mmol/L (-2.0-2.0); ARTERIAL BLOOD GAS PH 7.408 (7.35-7.45); ARTERIAL BLOOD GAS PO2 134.2 (80-90)
[2020-11-12 13:24] LABS: ACETAMINOPHEN (TYLENOL) < 5.0 ug/ml (10-30); ETHYL ALCOHOL < 3.0 mg/dl (<3); TROPONIN I 0.177 ng/ml (<0.045)
[2020-11-12 14:32] LABS: BILIRUBIN Negative (Negative); BLOOD Negative (Negative); CLARITY Clear (Clear); COLOR Dark Yellow (Yellow); GLUCOSE Negative (Negative); KETONE 1+ (Negative); LEUKO ESTERASE Negative (Negative); NITRITE Negative (Negative); PH 5.5 (4.5-8.0); SPECIFIC GRAVITY 1.025 (1.001-1.030)
[2020-11-12 14:40] LABS: URINE AMPHETAMINES < 1000 (1000ng/ml); URINE BARBITURATES < 200 (200ng/ml); URINE BENZODIAZEPINES < 200 (200ng/ml); URINE CANNABINOIDS (THC) < 50 (50ng/ml); URINE COCAINE < 300 (300ng/ml); URINE METHADONE < 300 (300ng/ml); URINE OPIATES < 300 (300ng/ml)
[2020-11-12 14:44] LABS: URINE PHENCYCLIDINE < 25 (25ng/ml)
[2020-11-12 14:51] LABS: BACTERIA 1+; MUCOUS 2+; RBC 0-2 rbc/hpf (0-2)
[2020-11-13] VITALS (7 sets, daily range): BP systolic 130–146; BP diastolic 66–88
[2020-11-13 06:18] LABS: BASO % 0.6 % (0.0-1.0); EOS # 0.1 10*3/uL (0.0-0.4); LYMPH # 2.1 10*3/uL (1.3-4.4); MEAN CELL VOLUME 97.3 fl (81.0-99.0); MEAN CORPUSCULAR HGB 32.1 pg (27.0-31.0); MEAN PLATELET VOLUME 10.5 fl (9.6-12.3); MONO # 0.7 10*3/uL (0.1-1.0); MONO % 9.9 % (3.0-9.0); NEUT # 4.1 10*3/uL (2.3-7.9); NEUT % 58.4 % (47.0-73.0); PLATELET COUNT AUTOMATED 175 10*3/uL (130-400); RED BLOOD COUNT 4.42 10*6/uL (4.10-5.10); RED CELL DISTRI WIDTH 16.3 % (0-14.5); WHITE BLOOD COUNT 6.9 10*3/uL (4.8-10.8)
[2020-11-13 06:33] LABS: ALBUMIN 2.9 gm/dl (3.1-4.5); BUN 6 mg/dl (7-24); CHLORIDE 104 mmol/L (98-107); CREATININE 0.28 mg/dL (0.55-1.02); POTASSIUM 3.1 mmol/L (3.5-5.1); SGOT/AST 17 IU/L (3-35); SGPT/ALT 18 U/L (12-78); SODIUM 137 mmol/L (136-145); TOTAL PROTEIN 6.1 gm/dL (6.4-8.2)
[2020-11-13 06:39] LABS: ALKALINE PHOSPHATASE 68 U/L (45-117)
[2020-11-13 08:05] LABS: VITAMIN D, 25-HYDROXY 69.3 ng/mL (30-100)
[2020-11-14 05:48] LABS: BUN 7 mg/dl (7-24); CHLORIDE 102 mmol/L (98-107); CREATININE 0.33 mg/dL (0.55-1.02); POTASSIUM 3.4 mmol/L (3.5-5.1); SODIUM 137 mmol/L (136-145)
[2020-11-14 06:12] LABS: BASO % 0.5 % (0.0-1.0); EOS # 0.1 10*3/uL (0.0-0.4); EOS % 1.9 % (1.0-4.0); HEMATOCRIT 45.3 % (37.0-47.0); LYMPH % 35.1 % (27.0-41.0); MEAN CELL VOLUME 96.4 fl (81.0-99.0); MEAN CORPUSCULAR HGB 31.5 pg (27.0-31.0); MEAN CORPUSCULAR HGB CONC 32.7 g/dl (33.0-37.0); MEAN PLATELET VOLUME 10.5 fl (9.6-12.3); MONO # 0.7 10*3/uL (0.1-1.0); MONO % 12.7 % (3.0-9.0); NEUT # 2.9 10*3/uL (2.3-7.9); NEUT % 49.6 % (47.0-73.0); PLATELET COUNT AUTOMATED 161 10*3/uL (130-400); RED CELL DISTRI WIDTH 15.9 % (0-14.5); WHITE BLOOD COUNT 5.8 10*3/uL (4.8-10.8)
[2020-11-14 08:00] VITALS: BP 157/86
[2020-11-14 08:30] VITALS: BP 140/80
[2020-11-14 16:00] VITALS: BP 118/53
[2020-11-14 20:00] VITALS: BP 110/60
[2020-11-15] VITALS: BP 108/54
[2020-11-15 08:00] VITALS: BP 165/85
[2020-11-15] MEDS ORDERED: VENT7GM INH (09:28)
== END 2020-11-15 09:15 | disposition home or self-care (01) | DRG 775 ==
LOC: ED 12:32 → EDHOLD 17:21 → ICCU 17:21 → EDHOLD 17:34 → ICCU 11-13 00:32
PROVIDERS: Emergency Medicine; Family Medicine; Physical Therapist; ADMIT Emergency Medicine; ATTEND Emergency Medicine
PROC: 4A02XM4 Measurement of Cardiac Total Activity, External Approach (ICD-10-PCS; principal; 2020-11-14)
PROC: 3E073KZ Introduction of Other Diagnostic Substance into Coronary Artery, Percutaneous Approach (ICD-10-PCS; 2020-11-14)
DX: F10.139 Alcohol abuse with withdrawal, unspecified (principal); G40.909 Epilepsy, unspecified, not intractable, without status epilepticus; E43 Unspecified severe protein-calorie malnutrition; E87.2 Acidosis; R65.11 Systemic inflammatory response syndrome (SIRS) of non-infectious origin with acute organ dysfunction; E87.6 Hypokalemia; E87.1 Hypo-osmolality and hyponatremia; R73.9 Hyperglycemia, unspecified; J96.10 Chronic respiratory failure, unspecified whether with hypoxia or hypercapnia; F31.9 Bipolar disorder, unspecified; R80.9 Proteinuria, unspecified; R82.4 Acetonuria; K21.9 Gastro-esophageal reflux disease without esophagitis; F17.210 Nicotine dependence, cigarettes, uncomplicated; J44.9 Chronic obstructive pulmonary disease, unspecified; Z88.0 Allergy status to penicillin; Z88.6 Allergy status to analgesic agent; Z86.73 Personal history of transient ischemic attack (TIA), and cerebral infarction without residual deficits; I25.2 Old myocardial infarction; Z87.01 Personal history of pneumonia (recurrent); Z98.891 History of uterine scar from previous surgery; Z90.710 Acquired absence of both cervix and uterus; Z83.3 Family history of diabetes mellitus; Z82.49 Family history of ischemic heart disease and other diseases of the circulatory system; Z80.3 Family history of malignant neoplasm of breast; Z79.82 Long term (current) use of aspirin; Z68.26 Body mass index [BMI] 26.0-26.9, adult; G93.41 Metabolic encephalopathy; I21.A1 Myocardial infarction type 2

== ENCOUNTER 2020-12-22 10:19 | Inpatient (IN) | payer OTHER ==
[2020-12-22] VITALS (39 sets, daily range): BP systolic 67–162; BP diastolic 40–97
[~2020-12-22] VITALS: Ht 167.6 cm; Wt 64.4 kg
[~2020-12-22 10:19] MED LIST changes: +VENT7GM INH
[2020-12-22 10:40] LABS: HEMATOCRIT 49.3 % (37.0-47.0); MEAN CELL VOLUME 99.4 fl (81.0-99.0); MEAN CORPUSCULAR HGB 32.3 pg (27.0-31.0); MEAN CORPUSCULAR HGB CONC 32.5 g/dl (33.0-37.0); MEAN PLATELET VOLUME 10.1 fl (9.6-12.3); PLATELET COUNT AUTOMATED 302 10*3/uL (130-400); RED BLOOD COUNT 4.96 10*6/uL (4.10-5.10); RED CELL DISTRI WIDTH 14.8 % (0-14.5); WHITE BLOOD COUNT 11.1 10*3/uL (4.8-10.8)
[2020-12-22 10:57] LABS: ALKALINE PHOSPHATASE 96 U/L (45-117); BUN 6 mg/dl (7-24); CHLORIDE 92 mmol/L (98-107); CREATININE 0.82 mg/dL (0.55-1.02); POTASSIUM 3.3 mmol/L (3.5-5.1); SGOT/AST 25 IU/L (3-35); SGPT/ALT 19 U/L (12-78); SODIUM 129 mmol/L (136-145); TOTAL PROTEIN 7.4 gm/dL (6.4-8.2)
[2020-12-22 10:58] LABS: LIPASE 90 U/L (73-393)
[2020-12-22 11:00] LABS: ETHYL ALCOHOL < 3.0 mg/dl (<3); TROPONIN I < 0.015 ng/ml (<0.045)
[2020-12-22 11:01] LABS: BASOPHILS 1 % (0-1); PLATELET SUFFICIENCY NORMAL (NORMAL); TOTAL CELLS COUNTED 100 #CELLS
[2020-12-22 11:16] LABS: BILIRUBIN Negative (Negative); BLOOD Negative (Negative); CLARITY Clear (Clear); COLOR Yellow (Yellow); GLUCOSE Negative (Negative); KETONE Trace (Negative); LEUKO ESTERASE Trace (Negative); NITRITE Negative (Negative); SPECIFIC GRAVITY 1.025 (1.001-1.030)
[2020-12-22 11:28] LABS: MUCOUS 2+; RBC 0-2 rbc/hpf (0-2); WBC 21-30 wbc/hpf (0-5)
[2020-12-22 13:13] LABS: ABG BASE EXCESS -3.5 mmol/L (-2.0-2.0); ARTERIAL BLOOD GAS PO2 135.9 (80-90)
[2020-12-22 13:16] LABS: ARTERIAL BLOOD GAS PH 7.011 (7.35-7.45)
[2020-12-22 16:07] LABS: ABG BASE EXCESS -3.6 mmol/L (-2.0-2.0); ARTERIAL BLOOD GAS PH 7.232 (7.35-7.45); ARTERIAL BLOOD GAS PO2 233.8 (80-90)
[2020-12-22 19:51] LABS: URINE AMPHETAMINES < 1000 (1000ng/ml); URINE BARBITURATES < 200 (200ng/ml); URINE BENZODIAZEPINES > 200 (200ng/ml); URINE CANNABINOIDS (THC) < 50 (50ng/ml); URINE COCAINE < 300 (300ng/ml); URINE METHADONE < 300 (300ng/ml); URINE OPIATES < 300 (300ng/ml)
[2020-12-22 19:53] LABS: URINE PHENCYCLIDINE < 25 (25ng/ml)
[2020-12-23] VITALS (14 sets, daily range): BP systolic 111–165; BP diastolic 66–95
[2020-12-23 05:27] LABS: ACT PARTIAL THROMBO TIME 28.1 SECONDS (20.0-32.1); INTERNATIONAL NORM RATIO 1.1 (2.0-3.5)
[2020-12-23 05:28] LABS: ALBUMIN 3.4 gm/dl (3.1-4.5); ALKALINE PHOSPHATASE 86 U/L (45-117); BUN 3 mg/dl (7-24); CHLORIDE 97 mmol/L (98-107); CHOLESTEROL 180 mg/dL (<200); CREATININE 0.33 mg/dL (0.55-1.02); LDL CHOLESTEROL 58 mg/dL (9-159); SGOT/AST 21 IU/L (3-35); SGPT/ALT 23 U/L (12-78); SODIUM 133 mmol/L (136-145); TOTAL PROTEIN 6.6 gm/dL (6.4-8.2); TRIGLYCERIDES 63 mg/dl (<150)
[2020-12-23 05:29] LABS: FREE T4 0.85 ng/dl (0.76-1.46)
[2020-12-23 06:17] LABS: BASO % 0.1 % (0.0-1.0); HEMATOCRIT 44.9 % (37.0-47.0); LYMPH # 0.5 10*3/uL (1.3-4.4); MEAN CORPUSCULAR HGB 32.6 pg (27.0-31.0); MEAN CORPUSCULAR HGB CONC 34.3 g/dl (33.0-37.0); MEAN PLATELET VOLUME 10.5 fl (9.6-12.3); MONO # 0.2 10*3/uL (0.1-1.0); MONO % 2.1 % (3.0-9.0); NEUT # 7.4 10*3/uL (2.3-7.9); NEUT % 91.6 % (47.0-73.0); PLATELET COUNT AUTOMATED 240 10*3/uL (130-400); RED BLOOD COUNT 4.73 10*6/uL (4.10-5.10); RED CELL DISTRI WIDTH 14.4 % (0-14.5); WHITE BLOOD COUNT 8.1 10*3/uL (4.8-10.8)
[2020-12-23 06:28] LABS: MEAN CELL VOLUME 94.9 fl (81.0-99.0)
[2020-12-23 06:47] LABS: TOTAL CELLS COUNTED 100 #CELLS
[2020-12-23 06:48] LABS: PLATELET SUFFICIENCY NORMAL (NORMAL)
[2020-12-23 07:24] LABS: VITAMIN D, 25-HYDROXY 60.3 ng/mL (30-100)
[2020-12-23 08:19] LABS: ABG BASE EXCESS -0.4 mmol/L (-2.0-2.0); ARTERIAL BLOOD GAS PH 7.417 (7.35-7.45); ARTERIAL BLOOD GAS PO2 72.4 (80-90)
[2020-12-23 12:15] LABS: ABG BASE EXCESS 1.7 mmol/L (-2.0-2.0); ARTERIAL BLOOD GAS PH 7.423 (7.35-7.45); ARTERIAL BLOOD GAS PO2 82.9 (80-90)
[2020-12-24] VITALS: BP 112/63
[2020-12-24 04:00] VITALS: BP 11/60
[2020-12-24 05:54] LABS: ALBUMIN 3.1 gm/dl (3.1-4.5); BUN 11 mg/dl (7-24); CHLORIDE 98 mmol/L (98-107); CREATININE 0.27 mg/dL (0.55-1.02); POTASSIUM 3.5 mmol/L (3.5-5.1); SGOT/AST 20 IU/L (3-35); SGPT/ALT 16 U/L (12-78); SODIUM 134 mmol/L (136-145)
[2020-12-24 05:56] LABS: ALKALINE PHOSPHATASE 62 U/L (45-117); TOTAL PROTEIN 6.1 gm/dL (6.4-8.2)
[2020-12-24 06:09] LABS: BASO % 0.1 % (0.0-1.0); HEMATOCRIT 40.3 % (37.0-47.0); LYMPH # 1.4 10*3/uL (1.3-4.4); LYMPH % 11.7 % (27.0-41.0); MEAN CELL VOLUME 95.7 fl (81.0-99.0); MEAN CORPUSCULAR HGB 32.3 pg (27.0-31.0); MEAN CORPUSCULAR HGB CONC 33.7 g/dl (33.0-37.0); MEAN PLATELET VOLUME 10.6 fl (9.6-12.3); MONO # 1.2 10*3/uL (0.1-1.0); MONO % 10.1 % (3.0-9.0); NEUT # 9.2 10*3/uL (2.3-7.9); NEUT % 77.7 % (47.0-73.0); PLATELET COUNT AUTOMATED 233 10*3/uL (130-400); RED BLOOD COUNT 4.21 10*6/uL (4.10-5.10); RED CELL DISTRI WIDTH 14.9 % (0-14.5); WHITE BLOOD COUNT 11.9 10*3/uL (4.8-10.8)
[2020-12-24 08:00] VITALS: BP 120/79
[2020-12-24 16:00] VITALS: BP 144/69
[2020-12-24 20:00] VITALS: BP 168/72
[2020-12-25] VITALS (8 sets, daily range): BP systolic 102–181; BP diastolic 68–98
[2020-12-25 05:31] LABS: ALBUMIN 3.4 gm/dl (3.1-4.5); BUN 10 mg/dl (7-24); CHLORIDE 94 mmol/L (98-107); CREATININE 0.33 mg/dL (0.55-1.02); POTASSIUM 3.2 mmol/L (3.5-5.1); SGOT/AST 22 IU/L (3-35); SGPT/ALT 21 U/L (12-78); SODIUM 132 mmol/L (136-145); TOTAL PROTEIN 6.7 gm/dL (6.4-8.2)
[2020-12-25 05:32] LABS: ALKALINE PHOSPHATASE 64 U/L (45-117)
[2020-12-25 06:14] LABS: BASO % 0.1 % (0.0-1.0); HEMATOCRIT 43.4 % (37.0-47.0); LYMPH # 0.8 10*3/uL (1.3-4.4); LYMPH % 8.3 % (27.0-41.0); MEAN CELL VOLUME 96.4 fl (81.0-99.0); MEAN CORPUSCULAR HGB CONC 33.2 g/dl (33.0-37.0); MEAN PLATELET VOLUME 10.6 fl (9.6-12.3); MONO # 0.6 10*3/uL (0.1-1.0); MONO % 6.1 % (3.0-9.0); NEUT # 7.7 10*3/uL (2.3-7.9); NEUT % 85.2 % (47.0-73.0); PLATELET COUNT AUTOMATED 235 10*3/uL (130-400); RED CELL DISTRI WIDTH 14.4 % (0-14.5)
[2020-12-26] VITALS: BP 130/79
[2020-12-26 03:47] VITALS: BP 125/82
[2020-12-26 05:31] LABS: ALKALINE PHOSPHATASE 54 U/L (45-117); BUN 13 mg/dl (7-24); CHLORIDE 98 mmol/L (98-107); CREATININE 0.32 mg/dL (0.55-1.02); POTASSIUM 3.4 mmol/L (3.5-5.1); SGOT/AST 15 IU/L (3-35); SGPT/ALT 20 U/L (12-78); SODIUM 134 mmol/L (136-145); TOTAL PROTEIN 5.9 gm/dL (6.4-8.2)
[2020-12-26 06:06] LABS: BASO % 0.1 % (0.0-1.0); LYMPH # 0.9 10*3/uL (1.3-4.4); MEAN CELL VOLUME 97.4 fl (81.0-99.0); MEAN CORPUSCULAR HGB 32.3 pg (27.0-31.0); MEAN CORPUSCULAR HGB CONC 33.1 g/dl (33.0-37.0); MEAN PLATELET VOLUME 10.9 fl (9.6-12.3); MONO # 0.4 10*3/uL (0.1-1.0); NEUT # 5.9 10*3/uL (2.3-7.9); NEUT % 81.3 % (47.0-73.0); PLATELET COUNT AUTOMATED 191 10*3/uL (130-400); RED BLOOD COUNT 4.31 10*6/uL (4.10-5.10); RED CELL DISTRI WIDTH 14.1 % (0-14.5); WHITE BLOOD COUNT 7.2 10*3/uL (4.8-10.8)
[2020-12-26 08:00] VITALS: BP 159/93
[2020-12-26 12:00] VITALS: BP 126/76
[2020-12-26 16:00] VITALS: BP 154/73
[2020-12-26 20:00] VITALS: BP 129/67
[2020-12-27] VITALS: BP 124/80
[2020-12-27 04:00] VITALS: BP 144/89
[2020-12-27 05:52] LABS: BUN 14 mg/dl (7-24); CHLORIDE 97 mmol/L (98-107); POTASSIUM 4.3 mmol/L (3.5-5.1); SODIUM 132 mmol/L (136-145)
[2020-12-27 05:57] LABS: ALBUMIN 3.1 gm/dl (3.1-4.5); ALKALINE PHOSPHATASE 49 U/L (45-117); CREATININE 0.42 mg/dL (0.55-1.02); SGOT/AST 15 IU/L (3-35); SGPT/ALT 21 U/L (12-78); TOTAL PROTEIN 6.1 gm/dL (6.4-8.2)
[2020-12-27 06:27] LABS: HEMATOCRIT 45.1 % (37.0-47.0); LYMPH # 1.1 10*3/uL (1.3-4.4); LYMPH % 13.6 % (27.0-41.0); MEAN CELL VOLUME 96.4 fl (81.0-99.0); MEAN CORPUSCULAR HGB 31.8 pg (27.0-31.0); MEAN PLATELET VOLUME 10.7 fl (9.6-12.3); MONO # 0.5 10*3/uL (0.1-1.0); MONO % 6.8 % (3.0-9.0); NEUT # 6.3 10*3/uL (2.3-7.9); NEUT % 79.1 % (47.0-73.0); PLATELET COUNT AUTOMATED 205 10*3/uL (130-400); RED BLOOD COUNT 4.68 10*6/uL (4.10-5.10); WHITE BLOOD COUNT 7.9 10*3/uL (4.8-10.8)
[2020-12-27 07:51] VITALS: BP 156/87
[2020-12-27 12:00] VITALS: BP 122/80
[2020-12-27 16:00] VITALS: BP 99/62
[2020-12-27 20:00] VITALS: BP 147/74
[2020-12-28] VITALS: BP 152/96
[2020-12-28 06:05] LABS: BASO % 0.1 % (0.0-1.0); HEMATOCRIT 43.1 % (37.0-47.0); LYMPH # 1.3 10*3/uL (1.3-4.4); LYMPH % 16.1 % (27.0-41.0); MEAN CELL VOLUME 94.9 fl (81.0-99.0); MEAN CORPUSCULAR HGB 32.6 pg (27.0-31.0); MEAN CORPUSCULAR HGB CONC 34.3 g/dl (33.0-37.0); MEAN PLATELET VOLUME 10.1 fl (9.6-12.3); MONO # 0.9 10*3/uL (0.1-1.0); NEUT % 72.4 % (47.0-73.0); PLATELET COUNT AUTOMATED 200 10*3/uL (130-400); RED BLOOD COUNT 4.54 10*6/uL (4.10-5.10); RED CELL DISTRI WIDTH 13.9 % (0-14.5); WHITE BLOOD COUNT 8.3 10*3/uL (4.8-10.8)
[2020-12-28 08:00] VITALS: BP 120/77
[2020-12-28 09:45] LABS: BUN 13 mg/dl (7-24); CHLORIDE 96 mmol/L (98-107); CREATININE 0.34 mg/dL (0.55-1.02); POTASSIUM 4.1 mmol/L (3.5-5.1); SODIUM 129 mmol/L (136-145)
[2020-12-28 12:00] VITALS: BP 123/67
[2020-12-28 16:00] VITALS: BP 149/79
[2020-12-28 20:00] VITALS: BP 132/74
[2020-12-29] VITALS: BP 125/68; BP 149/72
[2020-12-29 06:19] LABS: BUN 17 mg/dl (7-24); CHLORIDE 93 mmol/L (98-107); CREATININE 0.33 mg/dL (0.55-1.02); POTASSIUM 3.7 mmol/L (3.5-5.1); SODIUM 131 mmol/L (136-145)
[2020-12-29 08:00] VITALS: BP 124/85
[2020-12-29 16:00] VITALS: BP 120/70
[2020-12-30] VITALS: BP 121/65
[2020-12-30 06:06] LABS: BUN 18 mg/dl (7-24); CHLORIDE 97 mmol/L (98-107); CREATININE 0.31 mg/dL (0.55-1.02); POTASSIUM 3.5 mmol/L (3.5-5.1); SODIUM 132 mmol/L (136-145)
[2020-12-30 08:00] VITALS: BP 102/60
[2020-12-30 12:00] VITALS: BP 132/76
[2020-12-30 20:00] VITALS: BP 134/71
[2020-12-31 06:09] LABS: BUN 15 mg/dl (7-24); CHLORIDE 96 mmol/L (98-107); CREATININE 0.34 mg/dL (0.55-1.02); POTASSIUM 3.4 mmol/L (3.5-5.1); SODIUM 133 mmol/L (136-145)
[2020-12-31 08:00] VITALS: BP 127/80
[2020-12-31 12:00] VITALS: BP 100/62
[2021-01-01] VITALS: BP 111/60
[2021-01-01 08:00] VITALS: BP 127/83
[2021-01-01 10:43] LABS: BUN 13 mg/dl (7-24); CHLORIDE 96 mmol/L (98-107); CREATININE 0.31 mg/dL (0.55-1.02); POTASSIUM 3.7 mmol/L (3.5-5.1); SODIUM 131 mmol/L (136-145)
[2021-01-01 12:00] VITALS: BP 151/96
[2021-01-01] MEDS ORDERED: PREDNISONE10 MG PO (12:44)
== END 2021-01-01 15:47 | disposition home or self-care (01) | DRG 133 ==
LOC: ED 10:19 → EDHOLD 14:02 → ICCU 14:02 → 5E 12-31 17:24
PROVIDERS: Emergency Medicine; Internal Medicine; Social Worker Clinical; Student in an Organized Health Care Education/Training Program; ADMIT Internal Medicine; ATTEND Internal Medicine
PROC: 0BH17EZ Insertion of Endotracheal Airway into Trachea, Via Natural or Artificial Opening (ICD-10-PCS; principal; 2020-12-22)
PROC: 5A1935Z Respiratory Ventilation, Less than 24 Consecutive Hours (ICD-10-PCS; 2020-12-22)
PROC: 02HV33Z Insertion of Infusion Device into Superior Vena Cava, Percutaneous Approach (ICD-10-PCS; 2020-12-22)
PROC: B548ZZA Ultrasonography of Superior Vena Cava, Guidance (ICD-10-PCS; 2020-12-22)
DX: J96.21 Acute and chronic respiratory failure with hypoxia (principal); G40.909 Epilepsy, unspecified, not intractable, without status epilepticus; E87.1 Hypo-osmolality and hyponatremia; J96.22 Acute and chronic respiratory failure with hypercapnia; R65.10 Systemic inflammatory response syndrome (SIRS) of non-infectious origin without acute organ dysfunction; E87.8 Other disorders of electrolyte and fluid balance, not elsewhere classified; Y90.0 Blood alcohol level of less than 20 mg/100 ml; R80.9 Proteinuria, unspecified; E55.9 Vitamin D deficiency, unspecified; E87.6 Hypokalemia; F17.210 Nicotine dependence, cigarettes, uncomplicated; R73.9 Hyperglycemia, unspecified; D75.89 Other specified diseases of blood and blood-forming organs; F31.9 Bipolar disorder, unspecified; K21.9 Gastro-esophageal reflux disease without esophagitis; S00.03XA Contusion of scalp, initial encounter; F41.9 Anxiety disorder, unspecified; I07.1 Rheumatic tricuspid insufficiency; F10.231 Alcohol dependence with withdrawal delirium; J43.9 Emphysema, unspecified; Z20.822 Contact with and (suspected) exposure to COVID-19; X58.XXXA Exposure to other specified factors, initial encounter; Z86.73 Personal history of transient ischemic attack (TIA), and cerebral infarction without residual deficits; Z98.891 History of uterine scar from previous surgery; I25.2 Old myocardial infarction; Z88.0 Allergy status to penicillin; Z88.6 Allergy status to analgesic agent; Z90.710 Acquired absence of both cervix and uterus; Z83.3 Family history of diabetes mellitus; Z80.3 Family history of malignant neoplasm of breast; Z82.49 Family history of ischemic heart disease and other diseases of the circulatory system; Z79.82 Long term (current) use of aspirin; Y93.89 Activity, other specified; Y92.89 Other specified places as the place of occurrence of the external cause; Y99.8 Other external cause status

== ENCOUNTER 2021-01-19 17:51 | Emergency (ER) | payer OTHER ==
[~2021-01-19] VITALS: Ht 157.4 cm; Wt 62.1 kg
== END 2021-01-19 19:00 | disposition left against medical advice (07) ==
LOC: ED 17:51
DX: M25.571 Pain in right ankle and joints of right foot (principal); M79.89 Other specified soft tissue disorders; F17.210 Nicotine dependence, cigarettes, uncomplicated; Z88.0 Allergy status to penicillin; Z88.6 Allergy status to analgesic agent; Z88.8 Allergy status to other drugs, medicaments and biological substances; Z79.899 Other long term (current) drug therapy; Z79.82 Long term (current) use of aspirin; Z90.711 Acquired absence of uterus with remaining cervical stump; Z98.890 Other specified postprocedural states; X50.1XXA Overexertion from prolonged static or awkward postures, initial encounter; Y93.89 Activity, other specified; Y92.89 Other specified places as the place of occurrence of the external cause; Y99.8 Other external cause status

== ENCOUNTER 2021-03-26 01:31 | Emergency (ER) | payer OTHER ==
[2021-03-26 01:57] LABS: BASO # 0.1 10*3/uL (0.0-0.1); BASO % 0.7 % (0.0-1.0); HEMATOCRIT 49.6 % (37.0-47.0); LYMPH # 0.8 10*3/uL (1.3-4.4); LYMPH % 11.3 % (27.0-41.0); MEAN CELL VOLUME 97.3 fl (81.0-99.0); MEAN CORPUSCULAR HGB 32.2 pg (27.0-31.0); MEAN CORPUSCULAR HGB CONC 33.1 g/dl (33.0-37.0); MEAN PLATELET VOLUME 10.1 fl (9.6-12.3); MONO # 0.5 10*3/uL (0.1-1.0); MONO % 7.4 % (3.0-9.0); NEUT # 5.9 10*3/uL (2.3-7.9); NEUT % 80.5 % (47.0-73.0); PLATELET COUNT AUTOMATED 269 10*3/uL (130-400); RED CELL DISTRI WIDTH 14.1 % (0-14.5); WHITE BLOOD COUNT 7.3 10*3/uL (4.8-10.8)
[2021-03-26 02:15] LABS: ALBUMIN 3.7 gm/dl (3.1-4.5); ALKALINE PHOSPHATASE 117 U/L (45-117); BUN 4 mg/dl (7-24); CHLORIDE 97 mmol/L (98-107); CREATININE 0.47 mg/dL (0.55-1.02); SGOT/AST 32 IU/L (3-35); SGPT/ALT 37 U/L (12-78); SODIUM 135 mmol/L (136-145); TOTAL PROTEIN 7.7 gm/dL (6.4-8.2)
[2021-03-26 02:20] LABS: ETHYL ALCOHOL < 3.0 mg/dl (<3)
[2021-03-26] MEDS ORDERED: KEPPRA500 MG PO (11:16)
== END 2021-03-26 11:43 | disposition home or self-care (01) ==
LOC: ED 01:31
PROVIDERS: Internal Medicine
DX: R56.9 Unspecified convulsions (principal); Z20.822 Contact with and (suspected) exposure to COVID-19; J44.9 Chronic obstructive pulmonary disease, unspecified; F10.920 Alcohol use, unspecified with intoxication, uncomplicated; F17.210 Nicotine dependence, cigarettes, uncomplicated; Z88.0 Allergy status to penicillin; Z88.6 Allergy status to analgesic agent; Z79.899 Other long term (current) drug therapy; Z79.82 Long term (current) use of aspirin; Z98.890 Other specified postprocedural states; Z90.711 Acquired absence of uterus with remaining cervical stump

== ENCOUNTER 2021-09-05 18:31 | Inpatient (IN) | payer OTHER ==
[2021-09-05] VITALS (10 sets, daily range): BP systolic 139–202; BP diastolic 80–137
[~2021-09-05] VITALS: Ht 157.5 cm; Wt 61.9 kg
[~2021-09-05 18:31] MED LIST changes: +DOXYCYCLINE HY100 M3 PO; +KEPPRA500 MG PO
[2021-09-05 20:23] LABS: BILIRUBIN Negative (Negative); BLOOD Trace-Lysed (Negative); CLARITY Clear (Clear); COLOR Yellow (Yellow); GLUCOSE 1+ (Negative); KETONE Trace (Negative); LEUKO ESTERASE Negative (Negative); NITRITE Negative (Negative); UROBILINOGEN 0.2 E.U./dl (0.0-1.0)
[2021-09-05 20:46] LABS: BACTERIA TRACE
[2021-09-05 20:47] LABS: EPITHELIAL CELLS 0-2
[2021-09-05 20:52] LABS: BASO # 0.1 10*3/uL (0.0-0.1); BASO % 0.7 % (0.0-1.0); EOS % 0.1 % (1.0-4.0); HEMATOCRIT 49.4 % (37.0-47.0); LYMPH # 1.5 10*3/uL (1.3-4.4); LYMPH % 11.1 % (27.0-41.0); MEAN CELL VOLUME 95.2 fl (81.0-99.0); MEAN CORPUSCULAR HGB 31.6 pg (27.0-31.0); MEAN CORPUSCULAR HGB CONC 33.2 g/dl (33.0-37.0); MEAN PLATELET VOLUME 9.2 fl (9.6-12.3); MONO # 1.2 10*3/uL (0.1-1.0); NEUT # 10.9 10*3/uL (2.3-7.9); NEUT % 78.8 % (47.0-73.0); PLATELET COUNT AUTOMATED 297 10*3/uL (130-400); RED BLOOD COUNT 5.19 10*6/uL (4.10-5.10); RED CELL DISTRI WIDTH 15.1 % (0-14.5); WHITE BLOOD COUNT 13.8 10*3/uL (4.8-10.8)
[2021-09-05] MEDS ORDERED: MACROBID100 M1 PO ×2 (21:15)
[2021-09-05 21:19] LABS: ALKALINE PHOSPHATASE 153 U/L (45-117); BUN 3 mg/dl (7-24); CHLORIDE 89 mmol/L (98-107); CREATININE 0.74 mg/dL (0.55-1.02); LIPASE 101 U/L (73-393); POTASSIUM 3.5 mmol/L (3.5-5.1); SGOT/AST 33 IU/L (3-35); SGPT/ALT 30 U/L (12-78); SODIUM 130 mmol/L (136-145); TOTAL PROTEIN 8.4 gm/dL (6.4-8.2)
[2021-09-05 23:59] LABS: URINE AMPHETAMINES < 1000 (1000ng/ml); URINE BARBITURATES < 200 (200ng/ml); URINE BENZODIAZEPINES < 200 (200ng/ml); URINE CANNABINOIDS (THC) < 50 (50ng/ml); URINE COCAINE < 300 (300ng/ml); URINE METHADONE < 300 (300ng/ml); URINE OPIATES < 300 (300ng/ml); URINE PHENCYCLIDINE < 25 (25ng/ml)
[2021-09-06] VITALS: BP 146/86
[2021-09-06 04:00] VITALS: BP 102/69
[2021-09-06 06:06] LABS: ALKALINE PHOSPHATASE 119 U/L (45-117); BUN 6 mg/dl (7-24); CHLORIDE 96 mmol/L (98-107); CHOLESTEROL 214 mg/dL (<200); CPK 31 U/L (26-192); CREATININE 0.45 mg/dL (0.55-1.02); LDL CHOLESTEROL 90 mg/dL (9-159); POTASSIUM 4.1 mmol/L (3.5-5.1); SGOT/AST 22 IU/L (3-35); SGPT/ALT 24 U/L (12-78); SODIUM 131 mmol/L (136-145); TOTAL PROTEIN 7.2 gm/dL (6.4-8.2); TRIGLYCERIDES 57 mg/dl (<150)
[2021-09-06 06:07] LABS: BASO % 0.3 % (0.0-1.0); FREE T4 0.59 ng/dl (0.76-1.46); HEMATOCRIT 46.3 % (37.0-47.0); LYMPH # 0.6 10*3/uL (1.3-4.4); LYMPH % 8.9 % (27.0-41.0); MEAN CELL VOLUME 95.3 fl (81.0-99.0); MEAN CORPUSCULAR HGB 31.9 pg (27.0-31.0); MEAN CORPUSCULAR HGB CONC 33.5 g/dl (33.0-37.0); MEAN PLATELET VOLUME 9.6 fl (9.6-12.3); MONO # 0.4 10*3/uL (0.1-1.0); MONO % 5.2 % (3.0-9.0); NEUT # 5.8 10*3/uL (2.3-7.9); NEUT % 85.5 % (47.0-73.0); PLATELET COUNT AUTOMATED 237 10*3/uL (130-400); RED BLOOD COUNT 4.86 10*6/uL (4.10-5.10); RED CELL DISTRI WIDTH 14.9 % (0-14.5); WHITE BLOOD COUNT 6.7 10*3/uL (4.8-10.8)
[2021-09-06 06:16] LABS: ACT PARTIAL THROMBO TIME 27.2 SECONDS (20.0-32.1)
[2021-09-06 07:47] VITALS: BP 102/75
[2021-09-06 08:59] LABS: VITAMIN D, 25-HYDROXY 20.4 ng/mL (30-100)
[2021-09-06 12:00] VITALS: BP 93/52
[2021-09-06 16:00] VITALS: BP 112/73
[2021-09-06 20:00] VITALS: BP 117/74
[2021-09-07] VITALS: BP 126/83
[2021-09-07 04:00] VITALS: BP 121/85
[2021-09-07 05:33] LABS: BUN 11 mg/dl (7-24); CHLORIDE 97 mmol/L (98-107); CREATININE 0.41 mg/dL (0.55-1.02); POTASSIUM 3.7 mmol/L (3.5-5.1); SGOT/AST 22 IU/L (3-35); SGPT/ALT 16 U/L (12-78); SODIUM 134 mmol/L (136-145)
[2021-09-07 05:35] LABS: ALKALINE PHOSPHATASE 86 U/L (45-117); TOTAL PROTEIN 6.4 gm/dL (6.4-8.2)
[2021-09-07 05:57] LABS: BASO % 0.1 % (0.0-1.0); HEMATOCRIT 42.2 % (37.0-47.0); LYMPH # 1.6 10*3/uL (1.3-4.4); LYMPH % 17.3 % (27.0-41.0); MEAN CORPUSCULAR HGB 31.8 pg (27.0-31.0); MEAN CORPUSCULAR HGB CONC 33.9 g/dl (33.0-37.0); MEAN PLATELET VOLUME 9.9 fl (9.6-12.3); MONO # 1.1 10*3/uL (0.1-1.0); MONO % 11.8 % (3.0-9.0); NEUT # 6.5 10*3/uL (2.3-7.9); NEUT % 70.5 % (47.0-73.0); PLATELET COUNT AUTOMATED 229 10*3/uL (130-400); RED BLOOD COUNT 4.49 10*6/uL (4.10-5.10); RED CELL DISTRI WIDTH 14.6 % (0-14.5); WHITE BLOOD COUNT 9.2 10*3/uL (4.8-10.8)
[2021-09-07 08:00] VITALS: BP 123/86
[2021-09-07 12:00] VITALS: BP 110/83
[2021-09-07 16:00] VITALS: BP 122/77
[2021-09-07 20:00] VITALS: BP 143/81
[2021-09-08] VITALS: BP 149/78
[2021-09-08 06:25] LABS: BASO % 0.1 % (0.0-1.0); HEMATOCRIT 42.5 % (37.0-47.0); LYMPH # 1.4 10*3/uL (1.3-4.4); MEAN CELL VOLUME 92.4 fl (81.0-99.0); MEAN CORPUSCULAR HGB 31.5 pg (27.0-31.0); MEAN CORPUSCULAR HGB CONC 34.1 g/dl (33.0-37.0); MEAN PLATELET VOLUME 9.4 fl (9.6-12.3); MONO # 0.6 10*3/uL (0.1-1.0); MONO % 9.1 % (3.0-9.0); NEUT # 4.7 10*3/uL (2.3-7.9); NEUT % 69.5 % (47.0-73.0); PLATELET COUNT AUTOMATED 222 10*3/uL (130-400); RED CELL DISTRI WIDTH 14.2 % (0-14.5); WHITE BLOOD COUNT 6.7 10*3/uL (4.8-10.8)
[2021-09-08 06:44] LABS: BUN 14 mg/dl (7-24); CHLORIDE 95 mmol/L (98-107); POTASSIUM 3.6 mmol/L (3.5-5.1); SODIUM 132 mmol/L (136-145)
[2021-09-08 06:47] LABS: CREATININE 0.44 mg/dL (0.55-1.02)
[2021-09-08 08:00] VITALS: BP 142/88
[2021-09-08] MEDS ORDERED: NYSTATIN CREAM15 GM T (11:02)
[2021-09-08] MEDS ORDERED: VITAMIN D350 MC2 PO (11:02)
[2021-09-08] MEDS ORDERED: LEVOFLOXACIN500 MG PO (11:02)
[2021-09-08] MEDS ORDERED: PREDNISONE10 MG PO (11:02)
== END 2021-09-08 15:57 | disposition home or self-care (01) | DRG 53 ==
LOC: ED 18:31 → ICCU 22:30 → EDHOLD 22:30 → ICCU 22:43 → 4E 09-07 15:00
PROVIDERS: Emergency Medicine; Hospitalist; Internal Medicine; ADMIT Internal Medicine; ATTEND Internal Medicine
DX: G40.909 Epilepsy, unspecified, not intractable, without status epilepticus (principal); F10.231 Alcohol dependence with withdrawal delirium; E87.2 Acidosis; D75.1 Secondary polycythemia; E87.1 Hypo-osmolality and hyponatremia; R65.10 Systemic inflammatory response syndrome (SIRS) of non-infectious origin without acute organ dysfunction; J96.11 Chronic respiratory failure with hypoxia; E87.8 Other disorders of electrolyte and fluid balance, not elsewhere classified; R73.9 Hyperglycemia, unspecified; I10 Essential (primary) hypertension; E78.5 Hyperlipidemia, unspecified; F31.9 Bipolar disorder, unspecified; K21.9 Gastro-esophageal reflux disease without esophagitis; J44.9 Chronic obstructive pulmonary disease, unspecified; Z90.710 Acquired absence of both cervix and uterus; Z79.82 Long term (current) use of aspirin; Z79.51 Long term (current) use of inhaled steroids; Z79.899 Other long term (current) drug therapy; Z88.0 Allergy status to penicillin; Z88.6 Allergy status to analgesic agent; Z88.8 Allergy status to other drugs, medicaments and biological substances; Z98.891 History of uterine scar from previous surgery; Z86.73 Personal history of transient ischemic attack (TIA), and cerebral infarction without residual deficits

== ENCOUNTER 2021-11-01 12:21 | Inpatient (IN) | payer OTHER ==
[~2021-11-01] VITALS: Ht 154.9 cm; Wt 64.0 kg
[2021-11-01] VITALS (7 sets, daily range): BP systolic 116–160; BP diastolic 68–100
[~2021-11-01 12:21] MED LIST changes: +MACROBID100 M1 PO; +NYSTATIN CREAM15 GM T; +VITAMIN D350 MC2 PO
[2021-11-01 13:10] LABS: BASO # 0.1 10*3/uL (0.0-0.1); BASO % 0.6 % (0.0-1.0); HEMATOCRIT 47.4 % (37.0-47.0); LYMPH # 1.8 10*3/uL (1.3-4.4); LYMPH % 14.8 % (27.0-41.0); MEAN CELL VOLUME 99.6 fl (81.0-99.0); MEAN CORPUSCULAR HGB 32.4 pg (27.0-31.0); MEAN CORPUSCULAR HGB CONC 32.5 g/dl (33.0-37.0); MEAN PLATELET VOLUME 9.9 fl (9.6-12.3); MONO # 0.7 10*3/uL (0.1-1.0); MONO % 5.6 % (3.0-9.0); NEUT # 9.3 10*3/uL (2.3-7.9); NEUT % 78.5 % (47.0-73.0); PLATELET COUNT AUTOMATED 256 10*3/uL (130-400); RED BLOOD COUNT 4.76 10*6/uL (4.10-5.10); RED CELL DISTRI WIDTH 15.3 % (0-14.5); WHITE BLOOD COUNT 11.9 10*3/uL (4.8-10.8)
[2021-11-01 13:35] LABS: ALKALINE PHOSPHATASE 163 U/L (45-117); BUN 5 mg/dl (7-24); CHLORIDE 97 mmol/L (98-107); CREATININE 0.87 mg/dL (0.55-1.02); LIPASE 64 U/L (73-393); POTASSIUM 3.9 mmol/L (3.5-5.1); SGOT/AST 114 IU/L (3-35); SGPT/ALT 68 U/L (12-78); SODIUM 135 mmol/L (136-145); TOTAL PROTEIN 7.2 gm/dL (6.4-8.2)
[2021-11-01 14:00] LABS: BILIRUBIN 1+ (Negative); BLOOD 1+ (Negative); CLARITY Cloudy (Clear); COLOR Orange (Yellow); GLUCOSE Negative (Negative); KETONE Trace (Negative); LEUKO ESTERASE Negative (Negative); NITRITE Negative (Negative); PH 5.5 (4.5-8.0)
[2021-11-01 14:00] LABS: ACT PARTIAL THROMBO TIME 29.3 SECONDS (20.0-32.1)
[2021-11-01 14:17] LABS: HYALINE CAST TNTC; MUCOUS 1+
[2021-11-01 14:20] LABS: ABG BASE EXCESS -2.7 mmol/L (-2.0-2.0); ARTERIAL BLOOD GAS PH 7.272 (7.35-7.45); ARTERIAL BLOOD GAS PO2 133.1 (80-90)
[2021-11-02] VITALS: BP 137/68
[2021-11-02 04:00] VITALS: BP 131/77
[2021-11-02 06:03] LABS: BUN 4 mg/dl (7-24); CHLORIDE 104 mmol/L (98-107); POTASSIUM 3.4 mmol/L (3.5-5.1); SODIUM 139 mmol/L (136-145)
[2021-11-02 06:08] LABS: ALKALINE PHOSPHATASE 110 U/L (45-117); CHOLESTEROL 119 mg/dL (<200); CREATININE 0.35 mg/dL (0.55-1.02); FREE T4 0.74 ng/dl (0.76-1.46); LDL CHOLESTEROL 33 mg/dL (9-159); SGOT/AST 73 IU/L (3-35); SGPT/ALT 50 U/L (12-78); TOTAL PROTEIN 5.6 gm/dL (6.4-8.2); TRIGLYCERIDES 55 mg/dl (<150)
[2021-11-02 06:16] LABS: BASO % 0.3 % (0.0-1.0); EOS % 0.1 % (1.0-4.0); HEMATOCRIT 40.9 % (37.0-47.0); LYMPH # 1.2 10*3/uL (1.3-4.4); LYMPH % 12.5 % (27.0-41.0); MEAN CELL VOLUME 96.7 fl (81.0-99.0); MEAN CORPUSCULAR HGB 31.4 pg (27.0-31.0); MEAN CORPUSCULAR HGB CONC 32.5 g/dl (33.0-37.0); MEAN PLATELET VOLUME 10.3 fl (9.6-12.3); MONO # 1.1 10*3/uL (0.1-1.0); MONO % 10.8 % (3.0-9.0); NEUT # 7.4 10*3/uL (2.3-7.9); PLATELET COUNT AUTOMATED 220 10*3/uL (130-400); RED BLOOD COUNT 4.23 10*6/uL (4.10-5.10); RED CELL DISTRI WIDTH 15.4 % (0-14.5); WHITE BLOOD COUNT 9.7 10*3/uL (4.8-10.8)
[2021-11-02 08:00] VITALS: BP 118/82
[2021-11-02 08:29] LABS: VITAMIN D, 25-HYDROXY 73.9 ng/mL (30-100)
[2021-11-02 12:00] VITALS: BP 116/76
[2021-11-02 16:00] VITALS: BP 118/80
[2021-11-02 20:00] VITALS: BP 131/77
[2021-11-03] VITALS: BP 128/68
[2021-11-03 04:00] VITALS: BP 144/65
[2021-11-03 07:01] LABS: BASO % 0.8 % (0.0-1.0); EOS # 0.1 10*3/uL (0.0-0.4); EOS % 1.1 % (1.0-4.0); HEMATOCRIT 40.3 % (37.0-47.0); LYMPH # 1.3 10*3/uL (1.3-4.4); LYMPH % 23.9 % (27.0-41.0); MEAN CELL VOLUME 95.7 fl (81.0-99.0); MEAN CORPUSCULAR HGB 32.3 pg (27.0-31.0); MEAN CORPUSCULAR HGB CONC 33.7 g/dl (33.0-37.0); MEAN PLATELET VOLUME 10.2 fl (9.6-12.3); MONO # 0.6 10*3/uL (0.1-1.0); MONO % 10.8 % (3.0-9.0); NEUT # 3.3 10*3/uL (2.3-7.9); NEUT % 63.2 % (47.0-73.0); PLATELET COUNT AUTOMATED 201 10*3/uL (130-400); RED BLOOD COUNT 4.21 10*6/uL (4.10-5.10); RED CELL DISTRI WIDTH 14.6 % (0-14.5); WHITE BLOOD COUNT 5.3 10*3/uL (4.8-10.8)
[2021-11-03 07:19] LABS: BUN 3 mg/dl (7-24); TOTAL PROTEIN 5.5 gm/dL (6.4-8.2)
[2021-11-03 08:00] VITALS: BP 132/89
[2021-11-03 08:47] LABS: ALKALINE PHOSPHATASE 106 U/L (45-117); CHLORIDE 97 mmol/L (98-107); CREATININE 0.21 mg/dL (0.55-1.02); POTASSIUM 2.5 mmol/L (3.5-5.1); SGOT/AST 140 IU/L (3-35); SGPT/ALT 85 U/L (12-78); SODIUM 135 mmol/L (136-145)
[2021-11-03 12:00] VITALS: BP 128/84
[2021-11-03 16:00] VITALS: BP 147/80
[2021-11-03 16:13] LABS: BUN 4 mg/dl (7-24); CHLORIDE 100 mmol/L (98-107); CREATININE 0.37 mg/dL (0.55-1.02); POTASSIUM 3.4 mmol/L (3.5-5.1); SODIUM 137 mmol/L (136-145)
[2021-11-03 20:00] VITALS: BP 126/74
[2021-11-04] VITALS: BP 120/46
[2021-11-04 06:23] LABS: BASO % 0.9 % (0.0-1.0); EOS # 0.1 10*3/uL (0.0-0.4); EOS % 2.5 % (1.0-4.0); HEMATOCRIT 39.2 % (37.0-47.0); LYMPH # 1.4 10*3/uL (1.3-4.4); LYMPH % 30.6 % (27.0-41.0); MEAN CELL VOLUME 95.1 fl (81.0-99.0); MEAN CORPUSCULAR HGB 31.6 pg (27.0-31.0); MEAN CORPUSCULAR HGB CONC 33.2 g/dl (33.0-37.0); MEAN PLATELET VOLUME 9.6 fl (9.6-12.3); MONO # 0.7 10*3/uL (0.1-1.0); MONO % 15.4 % (3.0-9.0); NEUT # 2.2 10*3/uL (2.3-7.9); NEUT % 50.2 % (47.0-73.0); PLATELET COUNT AUTOMATED 185 10*3/uL (130-400); RED BLOOD COUNT 4.12 10*6/uL (4.10-5.10); RED CELL DISTRI WIDTH 14.7 % (0-14.5); WHITE BLOOD COUNT 4.5 10*3/uL (4.8-10.8)
[2021-11-04 07:12] LABS: BUN 3 mg/dl (7-24); CHLORIDE 102 mmol/L (98-107); POTASSIUM 3.2 mmol/L (3.5-5.1); SODIUM 138 mmol/L (136-145)
[2021-11-04 07:16] LABS: ALKALINE PHOSPHATASE 98 U/L (45-117); CREATININE 0.22 mg/dL (0.55-1.02); SGOT/AST 76 IU/L (3-35); SGPT/ALT 65 U/L (12-78); TOTAL PROTEIN 5.2 gm/dL (6.4-8.2)
[2021-11-04 08:00] VITALS: BP 140/85
[2021-11-04 12:00] VITALS: BP 160/80
[2021-11-04 16:00] VITALS: BP 152/90
[2021-11-04 20:00] VITALS: BP 153/84
[2021-11-04] MEDS ORDERED: POLYTRIM 1000010 ML OPH (21:11)
[2021-11-04] MEDS ORDERED: NYAMYC15 GM T (21:11)
[2021-11-05] VITALS: BP 160/89
[2021-11-05 06:13] LABS: BUN 2 mg/dl (7-24); CHLORIDE 103 mmol/L (98-107); CREATININE 0.28 mg/dL (0.55-1.02); POTASSIUM 3.1 mmol/L (3.5-5.1); SODIUM 138 mmol/L (136-145)
[2021-11-05 06:30] LABS: BASO % 0.8 % (0.0-1.0); EOS # 0.3 10*3/uL (0.0-0.4); HEMATOCRIT 42.5 % (37.0-47.0); LYMPH % 39.5 % (27.0-41.0); MEAN CELL VOLUME 94.9 fl (81.0-99.0); MEAN CORPUSCULAR HGB 31.9 pg (27.0-31.0); MEAN CORPUSCULAR HGB CONC 33.6 g/dl (33.0-37.0); MEAN PLATELET VOLUME 10.1 fl (9.6-12.3); MONO # 0.9 10*3/uL (0.1-1.0); MONO % 17.8 % (3.0-9.0); NEUT # 1.8 10*3/uL (2.3-7.9); NEUT % 36.5 % (47.0-73.0); PLATELET COUNT AUTOMATED 196 10*3/uL (130-400); RED BLOOD COUNT 4.48 10*6/uL (4.10-5.10); RED CELL DISTRI WIDTH 14.8 % (0-14.5)
[2021-11-05 08:00] VITALS: BP 148/80
[2021-11-05 12:00] VITALS: BP 112/73
[2021-11-05] MEDS ORDERED: LEVOTHYROXINE100 MC1 PO (14:16)
[2021-11-05] MEDS ORDERED: AVPAK AZITHROM250 M1 PO (14:22)
[2021-11-05 16:00] VITALS: BP 110/68
== END 2021-11-05 18:43 | disposition home or self-care (01) | DRG 720 ==
LOC: ED 12:21 → EDHOLD 15:03 → ICCU 15:03 → 5E 11-03 12:29
PROVIDERS: Emergency Medicine; Internal Medicine; Student in an Organized Health Care Education/Training Program; ADMIT Internal Medicine; ATTEND Internal Medicine
DX: A41.9 Sepsis, unspecified organism (principal); R65.20 Severe sepsis without septic shock; G93.41 Metabolic encephalopathy; E87.2 Acidosis; J96.21 Acute and chronic respiratory failure with hypoxia; E87.1 Hypo-osmolality and hyponatremia; E44.0 Moderate protein-calorie malnutrition; N61.0 Mastitis without abscess; F31.9 Bipolar disorder, unspecified; K21.9 Gastro-esophageal reflux disease without esophagitis; E87.8 Other disorders of electrolyte and fluid balance, not elsewhere classified; G40.909 Epilepsy, unspecified, not intractable, without status epilepticus; J96.22 Acute and chronic respiratory failure with hypercapnia; N17.0 Acute kidney failure with tubular necrosis; E78.5 Hyperlipidemia, unspecified; F41.9 Anxiety disorder, unspecified; I25.10 Atherosclerotic heart disease of native coronary artery without angina pectoris; I47.1 Supraventricular tachycardia; R74.01 Elevation of levels of liver transaminase levels; I10 Essential (primary) hypertension; J44.9 Chronic obstructive pulmonary disease, unspecified; B37.0 Candidal stomatitis; R73.9 Hyperglycemia, unspecified; Z88.5 Allergy status to narcotic agent; Z88.0 Allergy status to penicillin; Z90.710 Acquired absence of both cervix and uterus; Z88.6 Allergy status to analgesic agent; Z98.891 History of uterine scar from previous surgery; Z80.3 Family history of malignant neoplasm of breast; Z83.3 Family history of diabetes mellitus; Z91.19 Patient's noncompliance with other medical treatment and regimen; Z68.26 Body mass index [BMI] 26.0-26.9, adult

== ENCOUNTER 2023-05-17 14:40 | Emergency (ER) | payer MEDICAID ==
[~2023-05-17] VITALS: Wt 58.1 kg
[~2023-05-17 14:40] MED LIST changes: +ANORO ELLIPTA1 EACH INH; +ATORVASTATIN CA80 M1 PO; +AVPAK AZITHROM250 M1 PO; +Ipratropium Brom3 ML INH; +K-TAB20 MEQ PO; +LEVOFLOXACIN750 M2 PO; +LEVOTHYROXINE100 MC1 PO; +MUCINEX ER600 MG PO; +NYAMYC15 GM T; +POLYTRIM 1000010 ML OPH
[2023-05-17 15:08] LABS: BASO % 0.5 % (0.0-1.0); EOS # 0.3 10*3/uL (0.0-0.4); EOS % 3.3 % (1.0-4.0); HEMATOCRIT 39.7 % (37.0-47.0); LYMPH # 2.4 10*3/uL (1.3-4.4); LYMPH % 31.7 % (27.0-41.0); MEAN CELL VOLUME 93.9 fl (81.0-99.0); MEAN CORPUSCULAR HGB 28.8 pg (27.0-31.0); MEAN CORPUSCULAR HGB CONC 30.7 g/dl (33.0-37.0); MEAN PLATELET VOLUME 10.4 fl (9.6-12.3); MONO # 0.9 10*3/uL (0.1-1.0); MONO % 11.7 % (3.0-9.0); NEUT % 52.7 % (47.0-73.0); PLATELET COUNT AUTOMATED 258 10*3/uL (130-400); RED BLOOD COUNT 4.23 10*6/uL (4.10-5.10); RED CELL DISTRI WIDTH 14.3 % (0-14.5); WHITE BLOOD COUNT 7.6 10*3/uL (4.8-10.8)
[2023-05-17 15:49] LABS: ALKALINE PHOSPHATASE 618 U/L (46-116); BUN 13 mg/dl (9-23); CHLORIDE 103 mmol/L (98-107); POTASSIUM 4.1 mmol/L (3.4-5.1); SGPT/ALT 38 U/L (5-49); TOTAL PROTEIN 6.9 gm/dL (6.0-8.0)
[2023-05-17 15:50] LABS: BILIRUBIN Negative (Negative); BLOOD Trace-Lysed (Negative); CLARITY Clear (Clear); COLOR Yellow (Yellow); GLUCOSE 3+ (Negative); KETONE Trace (Negative); LEUKO ESTERASE Negative (Negative); NITRITE Negative (Negative); SPECIFIC GRAVITY >= 1.030 (1.001-1.030)
[2023-05-17 16:20] LABS: BACTERIA 1+; EPITHELIAL CELLS 21-30
== END 2023-05-17 20:36 ==
LOC: ED 14:40
PROVIDERS: Nurse Practitioner Family
DX: S43.102A Unspecified dislocation of left acromioclavicular joint, initial encounter (principal); E78.00 Pure hypercholesterolemia, unspecified; E83.42 Hypomagnesemia; E87.1 Hypo-osmolality and hyponatremia; J44.9 Chronic obstructive pulmonary disease, unspecified; K21.9 Gastro-esophageal reflux disease without esophagitis; E78.5 Hyperlipidemia, unspecified; I10 Essential (primary) hypertension; F31.9 Bipolar disorder, unspecified; I25.2 Old myocardial infarction; Z88.0 Allergy status to penicillin; Z88.5 Allergy status to narcotic agent; Z88.6 Allergy status to analgesic agent; Z90.710 Acquired absence of both cervix and uterus; Z90.89 Acquired absence of other organs; Z98.890 Other specified postprocedural states; F17.200 Nicotine dependence, unspecified, uncomplicated; X58.XXXA Exposure to other specified factors, initial encounter; Y93.89 Activity, other specified; Y92.129 Unspecified place in nursing home as the place of occurrence of the external cause; Y99.0 Civilian activity done for income or pay